=== PATIENT | male | born 1975 | race Caucasian/White ===

== ENCOUNTER 2020-07-03 14:18 | Outpatient (REF) | payer OTHER, SELFPAY ==
[2020-07-03 15:09] LABS: Alanine Aminotransferase 77 U/L (0-40); Albumin Level 4.4 g/dL (3.5-5.0); Alkaline Phosphatase 111 U/L (39-117); Aspartate Amino Transferase 92 U/L (5-37); Bilirubin Direct 0.3 mg/dL (0.0-0.5); Bilirubin Total 0.7 mg/dL (0.0-1.0); Total Protein 7.6 g/dL (6.5-8.0)
[2020-07-05 14:57] LABS: Ceruloplasmin 34 mg/dL (18-36); Immunoglobulin G 1340 mg/dL (600-1640)
[2020-07-06 15:52] LABS: Hepatitis B Viral DNA Qn - cp <1.00 NOT DETECTED Log IU/mL (NOT DETECTED); Hepatitis B Viral DNA Qn-IU/mL <10 NOT DETECTED IU/mL (NOT DETECTED)
[2020-07-08 23:12] LABS: Smooth Muscle Antibody <20 U (<20)
[2020-07-09 09:32] LABS: Liver Kidney Microsomal Ab <=20.0 U (<=20.0)
== END 2020-07-03 14:19 | disposition home or self-care (01) ==
LOC: HO.LAB 14:18
PROVIDERS: PCP Internal Medicine; Visit Provider Internal Medicine Gastroenterology
DX: R79.89 Other specified abnormal findings of blood chemistry (principal); Z86.19 Personal history of other infectious and parasitic diseases
CPT/HCPCS: 36415; 80076; 82390; 82784; 86255; 86376; 87517

== ENCOUNTER → 2020-07-10 15:57 | Outpatient (BNVA) | payer OTHER, SELFPAY | PROVIDERS: PCP Internal Medicine; Referring Provider Internal Medicine; Visit Provider Internal Medicine Gastroenterology | DX: Z76.89 Persons encountering health services in other specified circumstances (principal) ==

== ENCOUNTER 2020-07-22 20:30 | Emergency (ER) | payer OTHER, SELFPAY ==
[2020-07-22 22:57] VITALS: BP 115/57; PULSE 72; RESP 16; TEMP 37.1; O2SAT 98; BMI 27.9
--- NOTE | 2020-07-22 23:23 | ED_ITS ---
HPI - Skin/Abscess/Foreign Bdy General Chief complaint: Skin/Abscess/Foreign Body Stated complaint: ABSCESS Source: patient Mode of arrival: ambulatory Limitations: no limitations History of Present Illness HPI narrative: Patient presents to ED for right due to hoda posterior abscess due to injecting himself with testosterone. Patient states himself drained 6 mL of pus Related Data Home Medications Medication Instructions Recorded Confirmed gabapentin 300 mg capsule mg PO 07/10/20 07/10/20 amlodipine 5 mg tablet 5 mg PO DAILY 07/17/20 gabapentin 600 mg tablet 600 mg PO TID 07/17/20 Previous Rx's Medication Instructions Recorded atenolol 50 mg tablet 50 mg PO DAILY #90 tab 05/14/20 clonidine HCl 0.1 mg tablet 0.1 mg PO TID #90 tab 06/10/20 albuterol sulfate 90 mcg/actuation 2 puff INHALATION Q6H PRN 10 Days 07/17/20 aerosol inhaler #6.7 g azithromycin 250 mg tablet 250 mg PO DAILY 5 Days #6 tab 07/17/20 cyclobenzaprine 10 mg tablet 10 mg PO BEDTIME 30 Days #30 tab 07/17/20 ibuprofen 800 mg tablet 800 mg PO Q8H 10 Days #30 tab 07/17/20 triamcinolone acetonide 0.5 % 1 appl TOPICAL DAILY 10 Days #15 g 07/17/20 topical cream cephalexin 500 mg PO QID #28 cap 07/23/20 doxycycline hyclate 100 mg PO BID #20 cap 07/23/20 naproxen 500 mg PO BID PRN #20 tab 07/23/20 Allergies Allergy/AdvReac Type Severity Reaction Status Date / Time SEASONAL ALLERGIES Allergy Severe itch Uncoded 03/27/20 15:04 eyes,sneezing Review of Systems Review of Systems: Yes all other systems are reviewed and are negative Constitutional: Constitutional: Reports as per HPI and Reports no additional constitutional complaints Eyes: Eyes: Reports as per HPI and Reports no additional eye complaints ENT: Reports system reviewed and no additional complaints, except as documented and Reports as per HPI Cardiovascular: Cardiovascular: Reports as per HPI and Reports no additional cardiovascular complaints Respiratory: Respiratory: Reports as per HPI and Reports no additional respiratory complaints Gastrointestinal: Gastrointestinal: Reports as per HPI and Reports no additional gastrointestinal complaints Genitourinary: Genitourinary: Reports no additional male genitourinary complaints and Reports as per HPI Musculoskeletal: Musculoskeletal: Reports no additional musculoskeletal complaints and Reports as per HPI Comments: Right gluteal abscess Neurologic: Reports system reviewed and no additional complaints, except as documented and Reports as per HPI Psychiatric: Psychiatric: Reports no additional psychiatric complaints and Reports as per HPI [facility] Past Medical History Medical History (Updated 07/23/20 @ 00:58 by JARROD Seth) COVID-19 ruled out Elevated LFTs Flu-like symptoms Hip pain History of hepatitis C virus infection Surgical History No pertinent past surgical history Family History Family History (Updated 05/26/20 @ 07:59 by Martha Otrega Annette) Father Diabetes Alcohol abuse Hypertension Mother Depression with anxiety Family/Other Alcohol abuse FH: mental illness Social History Social History (Updated 07/10/20 @ 15:59 by Joelle Galindo CMA) Alcohol intake: never Smoking Status: Never smoker Smoked in Last 30 Days: Yes Use of substances other than those prescribed or required for medical reasons: No Advance Directives: No Physical Exam Vital Signs: Vital Signs: Last Vital Signs Temp 98.7 F 07/22/20 22:57 Pulse 72 07/22/20 22:57 Resp 16 07/22/20 22:57 BP 115/57 L 07/22/20 22:57 Pulse Ox 98 07/22/20 22:57 Body Mass Index 27.9 Const: General: cooperative, healthy appearing, comfortable, no acute distress, well developed, alert and awake; No Physically active Orientation/consciousness: patient oriented x3 HENMT: Head: Yes normal to inspection and Yes No palpable skull fracture present Eyes: General: appearance normal, both eyes and all related structures Neck: Neck: Yes normal visual inspection, Yes full ROM, Yes no lymphadenopathy, Yes no meningeal signs, Yes trachea midline, Yes supple and No tender Chest: Chest palpation & inspection: normal inspection of the chest and normal palpation of entire chest wall Resp: Effort & Inspection: normal respiratory effort and able to speak in complete sentences Auscultation: clear to auscultation bilaterally Cardio: Jugular venous distension: no JVD Heart sounds: S1 normal heart sound present and S2 normal heart sound present GI: Inspection: Yes normal to inspection and No abdominal wall ecchymosis Palpation (GI): Soft to palpation, not firm, nontender, no guarding and not rigid : General: No CVA tenderness and Yes no CVA tenderness Back/Spine/Pelvis: Other: Positive for large right gluteus hoda posterior thigh absent that is red erythematous and fluctuant. Negative for any abscess over hip joint. Back: no CVA tenderness, No CVA tenderness and No back tenderness Skin: Other: Right gluteus hoda abscess Neuro: General: patient oriented x3, gait normal, no meningeal signs and CN's II-XI intact bilaterally Cranial nerves: Yes CN's II-XII intact bilaterally Extrem: General: Yes normal to inspection and Yes full ROM Psych: Appearance: grossly normal, well kempt and not disheveled Course Course Course Narrative: Access evaluate by Dr. Hadley who states abscess is not overlying hip joint and can be drained. Patient states up-to-date with his tetanus. Reevaluation(s) Reevaluation #1: Abscess was drained. Abscess as at least 6 cm. Before incision and drainage wound was cleaned with sterile saline and Betadine. 10 mL of lidocaine 2% was used for anesthesia. Initially 18 gauge needle with syringe drain 60 mL of pus. Then incision was made and at least a 600 mL was drained. Forceps was used to open pocket. Normal saline was inserted into pocket of abscess or squeezing. Packing was placed. Patient informed to follow-up with surgeon. Patient discharged with antibiotics. Time: 00:55 Discharge Plan Discharge Clinical Impression: Abscess, Abscess of skin or subcutaneous tissue Patient Disposition: Home, Self-Care Instructions: Abscess (ED), Abscess Incision and Drainage (DC) Additional Instructions: Return to the ED immediately for worsening pain, redness, swelling, or any other concerning symptoms. Please follow-up with surgeon as outpatient. Return to the ED within 2 days for packing replacement. Prescriptions: New doxycycline hyclate 100 mg capsule 100 mg PO BID Qty: 20 RF: 0 cephalexin 500 mg capsule 500 mg PO QID Qty: 28 RF: 0 naproxen 500 mg tablet 500 mg PO BID PRN (Reason: pain) Qty: 20 RF: 0 No Action atenolol 50 mg tablet 50 mg PO DAILY Qty: 90 RF: 8 clonidine HCl 0.1 mg tablet 0.1 mg PO TID Qty: 90 RF: 8 ibuprofen 800 mg tablet 800 mg PO Q8H 10 Days Qty: 30 RF: 0 cyclobenzaprine 10 mg tablet 10 mg PO BEDTIME 30 Days Qty: 30 RF: 0 azithromycin 250 mg tablet 250 mg PO DAILY 5 Days Qty: 6 RF: 0 triamcinolone acetonide 0.5 % cream 1 appl topical DAILY 10 Days Qty: 15 RF: 0 albuterol sulfate 90 mcg/actuation HFA aerosol inhaler 2 puff inhalation Q6H PRN (Reason: shortness of breath or wheezing) 10 Days Qty: 6.7 RF: 0 gabapentin 300 mg capsule PO RF: 0 Referrals: Meliton Álvarez MD [Physician] - 2 days (Status post incision and drainage of right gluteus hoda abscess due to testosterone injections.) Interventions: ED Discharge Assessment Last Done: 07/23/20 01:11 Discharge Date/Time: 07/23/20 01:16 Print Language: Telugu
[2020-07-22] MEDS: Lidocaine HCl 2 % MPF 5 ML VIAL INFILTRATI ×2 (23:54)
[2020-07-23] MEDS: Ibuprofen 600 MG TABLET PO (01:09)
== END 2020-07-23 01:16 | disposition home or self-care (01) ==
PROVIDERS: Emergency Provider Emergency Medicine; PCP Internal Medicine
DX: L02.419 Cutaneous abscess of limb, unspecified (principal)
CPT/HCPCS: 10060; 87071; 87077; 87186; 87205; 99283; 99284

== ENCOUNTER 2020-10-23 14:08 | Outpatient (REF) | payer OTHER, SELFPAY | END 2020-10-23 14:09 | disposition home or self-care (01) | LOC: HO.LAB 14:08 | PROVIDERS: PCP Internal Medicine; Visit Provider Internal Medicine Gastroenterology | DX: Z13.89 Encounter for screening for other disorder (principal) ==

== ENCOUNTER 2020-12-22 21:24 | Emergency (ER) | payer OTHER, SELFPAY ==
--- NOTE | ~2020-12-22 | XR_ITS ---
EXAMINATION: XR HIP, RIGHT CLINICAL INFORMATION: Increasing pain. COMPARISON: None TECHNIQUE: Two views of the right hip. FINDINGS: There is normal symmetry of bilateral hip joint and SI joints on AP view. AP and frog-leg views right hip reveals a small nondisplaced fracture along the greater trochanter with small avulsion fracture fragments. There is no dislocation. No additional fractures seen.. XR/XR hip RT min 2V IMPRESSION: Small avulsion fracture fragments along the right greater trochanter of the femur. No additional fractures seen. There is no dislocation.
[2020-12-22 22:12] VITALS: BP 194/100; PULSE 95; RESP 18; TEMP 36.8; O2SAT 95; BMI 25.8
--- NOTE | 2020-12-22 23:29 | PC.NURSE ---
DR CONNER IN TO [facility] PATIENT. XRAYS REVIEWED.
--- NOTE | 2020-12-22 23:32 | ED.LOWEXIN ---
HPI - Extremity Injury (Lower) General Chief Complaint: Extremity Injury, Lower Stated Complaint: hip pain Time Seen by Provider: 12/22/20 23:32 History of Present Illness HPI Narrative: Patient is a 45-year-old male history of using male testosterone. Patient injected to his right gluteal area in the past. It developed an abscess once. Patient had a drain in the past. Patient claims that he did it again. He did not notice any abscess at this time. Been having pain for months. The pain is worse with movement. Patient also works out. No fever no chills. No cough no congestion or upper respiratory symptoms. Pain has been fairly constant. Patient finally decided come to emergency department further evaluation. Patient is on methadone. No IV drug use currently. No fever no chills. No systemic complaints currently. Related Data Home Medications Medication Instructions Recorded Confirmed amlodipine 5 mg tablet 5 mg PO DAILY 07/17/20 08/11/20 gabapentin 600 mg tablet 600 mg PO TID 07/17/20 08/11/20 Previous Rx's Medication Instructions Recorded atenolol 50 mg tablet 50 mg PO DAILY #90 tab 05/14/20 clonidine HCl 0.1 mg tablet 0.1 mg PO TID #90 tab 06/10/20 albuterol sulfate 90 mcg/actuation 2 puff INHALATION Q6H PRN 10 Days 07/17/20 aerosol inhaler #6.7 g azithromycin 250 mg tablet 250 mg PO DAILY 5 Days #6 tab 07/17/20 cyclobenzaprine 10 mg tablet 10 mg PO BEDTIME 30 Days #30 tab 07/17/20 triamcinolone acetonide 0.5 % 1 appl TOPICAL DAILY 10 Days #15 g 07/17/20 topical cream cephalexin 500 mg PO QID #28 cap 07/23/20 doxycycline hyclate 100 mg PO BID #20 cap 07/23/20 naproxen 500 mg PO BID PRN #20 tab 07/23/20 ibuprofen 800 mg tablet 800 mg PO Q8H 10 Days #90 tab 08/27/20 gabapentin 300 mg capsule 300 mg PO DAILY #90 cap 10/27/20 Allergies Allergy/AdvReac Type Severity Reaction Status Date / Time sulfamethoxazole Allergy Rash Verified 12/22/20 22:22 [From Bactrim] trimethoprim [From Bactrim] Allergy Rash Verified 12/22/20 22:22 SEASONAL ALLERGIES Allergy Severe itch Uncoded 12/22/20 22:21 eyes,sneezing Review of Systems Review of Systems: Constitutional: No Weight loss, No Fever, No Chills, No Night Sweats, No Fatigue, No Malaise ENT/Mouth: No Hearing loss, No Ear Pain, No Nasal Congestion, No Sinus Pain, No Hoarseness, No sore throat, No Rhinorrhea, No Swallowing Difficulty Eyes: No Eye Pain, No Swelling, No Redness, No Foreign Body, No Discharge, No Vision Changes Cardiovascular: No Chest Pain, No SOB, No Dyspnea on Exertion, No Orthopnea, No Edema, No Palpitations Respiratory: No Cough, No Sputum, No Wheezing, No Smoke Exposure, No Dyspnea Gastrointestinal: No Nausea, No Vomiting, No Diarrhea, No Constipation, No abdominal Pain, No Hematochezia, No Melena Genitourinary: no irregular bleeding, No Dysuria, No Urinary Frequency, No Hematuria, No Urinary Incontinence, No Urgency, No Flank Pain, No Urinary Flow Changes, No Hesitancy Musculoskeletal: Positive hip pain, No Myalgias, No Joint Swelling Skin: No Skin Lesions, No rash Neuro: No Weakness, No Numbness, No Paresthesias, No Loss of Consciousness, No Dizziness, No Headache Psych: No Anxiety/Panic, No Depression, No SI/HI/AH/VH, No Social Issues, Heme/Lymph: No Bruising, No Bleeding,No Lymphadenopathy Endocrine: No Polyuria, No Polydipsia, No Temperature Intolerance Yes all other systems are reviewed and are negative PMFSH Past Medical History Medical History COVID-19 ruled out Elevated LFTs Flu-like symptoms Hip pain History of hepatitis C virus infection Surgical History No pertinent past surgical history Family History Family History Father Diabetes Alcohol abuse Hypertension Mother Depression with anxiety Family/Other Alcohol abuse FH: mental illness Social History Social History Alcohol intake: never Advance Directives: No Advance Directives Information Provided: No Physical Exam Vital Signs: Vital Signs: Last Vital Signs Temp 98.2 F 12/22/20 22:12 Pulse 95 12/22/20 22:12 Resp 18 12/22/20 22:12 BP 194/100 H 12/22/20 22:12 Pulse Ox 95 12/22/20 22:12 Body Mass Index 25.8 Appearance: Alert. Oriented X3. No acute distress. Eyes: Pupils equal, round and reactive to light. ENT: Pharynx normal. Neck: Normal inspection. Neck supple. No lymph nodes noted. No crepitus CVS: Normal heart rate and rhythm. Pulses normal. Normal S1 and S2 Respiratory: No respiratory distress. Breath sounds normal. No Wheezing. No rales Abdomen: Soft and nontender. No rigidity. No distention. good BS x4 Skin: Skin warm and dry. Normal skin color. Normal skin turgor. Extremities: No lower extremity edema. There is no erythema in the right hip. There is no abscess that is palpable. Patient's range of motion is intact. Positive pain on movement. Distal pulses are intact. Skin are intact. No swelling. Calf size equal at 10 cm below the tibial tuberosity. Neurovascular intact to all extremities. No Lacerations. No Rash Neuro: Oriented X 3. No motor deficit. No sensory deficit. Moving all extermities. No slurred speech MDM - Extremity Injury (Lower) MDM Narrative Medical decision making narrative: Patient well-appearing positive history of using IM testosterone. Patient x-ray showed an avulsion fracture of the greater trochanter. Will need follow-up on an outpatient basis. Patient ambulatory but with pain. Range of motion intact but with pain. There is no fever no chills. No systemic complaints. Given the range of motion less likely a septic joint. Patient denies using IV drugs recently. Has been on methadone for years. Currently in stable condition. Will refer patient to orthopedic clinic tomorrow. Discharge Plan Discharge Clinical Impression: Closed avulsion fracture of greater trochanter of femur Patient Disposition: Home, Self-Care Instructions: Avulsion Fracture (ED) Prescriptions: No Action atenolol 50 mg tablet 50 mg PO DAILY Qty: 90 RF: 8 clonidine HCl 0.1 mg tablet 0.1 mg PO TID Qty: 90 RF: 8 ibuprofen 800 mg tablet 800 mg PO Q8H 10 Days Qty: 90 RF: 8 gabapentin 300 mg capsule 300 mg PO DAILY Qty: 90 RF: 8 doxycycline hyclate 100 mg capsule 100 mg PO BID Qty: 20 RF: 0 cephalexin 500 mg capsule 500 mg PO QID Qty: 28 RF: 0 naproxen 500 mg tablet 500 mg PO BID PRN (Reason: pain) Qty: 20 RF: 0 amlodipine 5 mg tablet 5 mg PO DAILY RF: 0 gabapentin 600 mg tablet 600 mg PO TID RF: 0 cyclobenzaprine 10 mg tablet 10 mg PO BEDTIME 30 Days Qty: 30 RF: 0 azithromycin 250 mg tablet 250 mg PO DAILY 5 Days Qty: 6 RF: 0 triamcinolone acetonide 0.5 % cream 1 appl topical DAILY 10 Days Qty: 15 RF: 0 albuterol sulfate 90 mcg/actuation HFA aerosol inhaler 2 puff inhalation Q6H PRN (Reason: shortness of breath or wheezing) 10 Days Qty: 6.7 RF: 0 Referrals: Erlin Ragland MD [Physician] - 1 day
== END 2020-12-23 00:06 | disposition home or self-care (01) ==
PROVIDERS: Emergency Provider Emergency Medicine Emergency Medical Services; PCP Internal Medicine
DX: S72.111A Displaced fracture of greater trochanter of right femur, initial encounter for closed fracture (principal); F11.90 Opioid use, unspecified, uncomplicated; X58.XXXA Exposure to other specified factors, initial encounter; Y93.9 Activity, unspecified; Y92.9 Unspecified place or not applicable; Y99.9 Unspecified external cause status
CPT/HCPCS: 73502; 99283

== ENCOUNTER → 2020-12-29 08:43 | Outpatient (BNVA) | payer OTHER, SELFPAY | PROVIDERS: PCP Internal Medicine; Visit Provider Physician Assistant | DX: S72.111A Displaced fracture of greater trochanter of right femur, initial encounter for closed fracture (principal) | CPT/HCPCS: 99202 ==

== ENCOUNTER 2021-01-01 08:05 | Outpatient (REF) | payer OTHER, SELFPAY ==
--- NOTE | ~2021-01-01 | MR_ITS ---
EXAMINATION: MR HIP WITHOUT CONTRAST, RIGHT CLINICAL INFORMATION: Right hip greater trochanter fracture COMPARISON: Radiographs 12/22/2020 TECHNIQUE: MRI of the right hip was obtained using routine sequences on a high-field strength magnet. FINDINGS: Best demonstrated on the coronal T1-weighted sequence of the pelvis on image 12 is a 2 cm round focus of T2 signal hyperintensity representing lucency on the radiograph with a few displaced cortical fragments at the proximal most aspect of the greater trochanter. This is located proximal to and between the insertions of the gluteus minimus and medius tendons. There is marked surrounding bone marrow edema and soft tissue edema with a fluid collection in the trochanteric bursa. Edema extends proximally along the gluteus medius and minimus muscles, along the obturator externus tendon and muscle, and distally along the vastus lateralis muscle with fluid tracking within the fascial planes between the quadriceps and tensor fascia tiffany muscles. There is a trace hip joint effusion. No definite labral tear. Mild reactive adenopathy in the deep right pelvis. MR/MR hip RT wo con IMPRESSION: There is a 2 cm round lucency at the proximal most aspect of the right greater trochanter with disruption of the proximal cortex with minimally displaced cortical fragments which were demonstrated on the radiograph. Given the intense surrounding bone marrow edema and surrounding soft tissue edema with small focal fluid collection proximally, and fluid in the trochanteric bursa, abscess/osteomyelitis is considered the most likely diagnosis, although uncommon in this location. This critical result was discussed with Charmaine GARAY at 09:57 am on 01/01/2021 and it was ascertained that the content and urgency of the report was understood at the time of direct communication.
== END 2021-01-01 08:06 | disposition home or self-care (01) ==
LOC: HO.MRI 08:05
PROVIDERS: PCP Internal Medicine; Visit Provider Physician Assistant
DX: S72.111A Displaced fracture of greater trochanter of right femur, initial encounter for closed fracture (principal)
CPT/HCPCS: 73721

== ENCOUNTER → 2021-01-05 14:08 | Outpatient (BNVA) | payer OTHER, SELFPAY | PROVIDERS: Visit Provider Physician Assistant | DX: Z01.818 Encounter for other preprocedural examination (principal); L02.415 Cutaneous abscess of right lower limb | CPT/HCPCS: 99212 ==

== ENCOUNTER 2021-01-07 07:08 | Day surgery (SDC) | payer OTHER, SELFPAY ==
--- NOTE | 2021-01-06 12:05 | HO.ANESPROP2 ---
Documented by User: Connie Evans 01/06/21 12:08 HPI - Anesthesia Eval Consult details Narrative: 45yo M for I&D Right Hip Per old record, h/o IVDA/non-prescribed methadone PMFSH Active Problems Active Problems: All Active Problems (Updated 01/05/21 @ 15:17 by Charmaine Griffiths PA-C) Abscess of hip, right (Acute) Closed avulsion fracture of greater trochanter of right femur (Acute) COVID-19 ruled out (Acute) Hip pain (Acute) Flu-like symptoms (Acute) Obsessive compulsive personality disorder (Acute) GERD (gastroesophageal reflux disease) (Acute) Attention deficit hyperactivity disorder (Acute) Depression (Acute) Hypertension (Acute) Elevated LFTs (Acute) Past Medical History Medical History (Updated 01/06/21 @ 12:06 by Connie Evans) COVID-19 ruled out Depression Elevated LFTs GERD (gastroesophageal reflux disease) Hip pain History of hepatitis C virus infection Hypertension Family History Family History Father Diabetes Alcohol abuse Hypertension Mother Depression with anxiety Family/Other Alcohol abuse FH: mental illness Surgical History Surgical History No pertinent past surgical history Social History Social History (Updated 12/29/20 @ 08:54 by Cait Voss CMA) Alcohol intake: never Patient Tobacco Use Status: Current everyday Tobacco user Tobacco use type: Smokeless Tobacco Are you DNR?: No Advance Directives: No Advance Directives Information Provided: Yes Current occupational status: unemployed Current occupation: Right handed Meds Allergies Allergy/AdvReac Type Severity Reaction Status Date / Time sulfamethoxazole Allergy Rash Verified 01/05/21 14:22 [From Bactrim] trimethoprim [From Bactrim] Allergy Rash Verified 01/05/21 14:22 SEASONAL ALLERGIES Allergy Severe itch Uncoded 12/22/20 22:21 eyes,sneezing Home Medications Medication Instructions Recorded Confirmed Last Taken Type amlodipine 5 mg tablet 5 mg PO DAILY 07/17/20 08/11/20 Unknown History gabapentin 600 mg tablet 600 mg PO TID 07/17/20 08/11/20 Unknown History methadone 120 mg PO DAILY 01/07/21 01/07/21 01/07/21 History Exam Exam Date and Time: January 06, 2021 1205 Assessment and Plan Assessment Anesthesia Assessment: Chart Reviewed Documented by User: Danyelle Roche 01/07/21 07:51 [facility] Past Medical History Medical History (Updated 01/06/21 @ 12:06 by Connie Evans) COVID-19 ruled out Depression Elevated LFTs GERD (gastroesophageal reflux disease) Hip pain History of hepatitis C virus infection Hypertension Family History Family History Father Diabetes Alcohol abuse Hypertension Mother Depression with anxiety Family/Other Alcohol abuse FH: mental illness Surgical History Surgical History No pertinent past surgical history Social History Social History (Updated 12/29/20 @ 08:54 by Cait Voss CMA) Alcohol intake: never Patient Tobacco Use Status: Current everyday Tobacco user Tobacco use type: Smokeless Tobacco Are you DNR?: No Advance Directives: No Advance Directives Information Provided: Yes Current occupational status: unemployed Current occupation: Right handed Meds Allergies Allergy/AdvReac Type Severity Reaction Status Date / Time sulfamethoxazole Allergy Rash Verified 01/05/21 14:22 [From Bactrim] trimethoprim [From Bactrim] Allergy Rash Verified 01/05/21 14:22 SEASONAL ALLERGIES Allergy Severe itch Uncoded 12/22/20 22:21 eyes,sneezing Home Medications Medication Instructions Recorded Confirmed Last Taken Type amlodipine 5 mg tablet 5 mg PO DAILY 07/17/20 08/11/20 Unknown History gabapentin 600 mg tablet 600 mg PO TID 07/17/20 08/11/20 Unknown History methadone 120 mg PO DAILY 01/07/21 01/07/21 01/07/21 History Exam Airway Mallampati Class: II (Poor dentition, nothing loose) TM Dist: >3cm Neck ROM: Full Heart: rrr Lungs: cta Assessment and Plan Assessment Anesthesia Assessment: Anesthesia Plan Discussed and Chart Reviewed Final Anesthetic Review NPO: Yes ASA Class: III Final Preanesthetic Review: No Changes in Pt Med Stat and Consent Obtained/Reviewed Patient Risk: Intermediate Procedure Risk: Intermediate Anesthetic Plan Anesthetic Plan: GA Disposition: Standard PACU
[2021-01-07 07:30] VITALS: BP 161/91; PULSE 71; RESP 18; TEMP 36.4; O2SAT 98; BMI 24.3
--- NOTE | 2021-01-07 07:42 | ECG_ITS ---
Test Reason : EKG Blood Pressure : / mmHG Vent. Rate : 068 BPM Atrial Rate : 068 BPM P-R Int : 144 ms QRS Dur : 086 ms QT Int : 436 ms P-R-T Axes : 000 066 -04 degrees QTc Int : 463 ms Unusual P axis, possible ectopic atrial rhythm Voltage criteria for left ventricular hypertrophy Nonspecific ST and T wave abnormality Prolonged QT Abnormal ECG When compared with ECG of 17-SEP-2015 13:59, Unusual P axis, possible ectopic atrial rhythm has replaced Normal sinus rhythm Referred By: Gabino Tyler Electronically Signed By:MATT BURR MD
[2021-01-07] MEDS: Lactated Ringers 1,000 ML 100 ML IVCONT (07:51)
--- NOTE | 2021-01-07 08:23 | P.CONAN_ITS ---
FORMERLY [facility] Active Problems Active Problems: All Active Problems (Updated 01/06/21 @ 12:06 by Connie corral) Abscess of hip, right (Acute) Closed avulsion fracture of greater trochanter of right femur (Acute) COVID-19 ruled out (Acute) Hip pain (Acute) Flu-like symptoms (Acute) Obsessive compulsive personality disorder (Acute) Attention deficit hyperactivity disorder (Acute) Elevated LFTs (Acute) Past Medical History Medical History COVID-19 ruled out Depression Elevated LFTs GERD (gastroesophageal reflux disease) Hip pain History of hepatitis C virus infection Hypertension Family History Family History Father Diabetes Alcohol abuse Hypertension Mother Depression with anxiety Family/Other Alcohol abuse FH: mental illness Surgical History Surgical History No pertinent past surgical history Social History Social History Alcohol intake: never Patient Tobacco Use Status: Current everyday Tobacco user Tobacco use type: Smokeless Tobacco Are you DNR?: No Advance Directives: No Advance Directives Information Provided: Yes Current occupational status: unemployed Current occupation: Right handed Meds Allergies Allergy/AdvReac Type Severity Reaction Status Date / Time sulfamethoxazole Allergy Rash Verified 01/05/21 14:22 [From Bactrim] trimethoprim [From Bactrim] Allergy Rash Verified 01/05/21 14:22 SEASONAL ALLERGIES Allergy Severe itch Uncoded 12/22/20 22:21 eyes,sneezing Active Medications: Current Medications Generic Name Dose Route Start Last Admin Trade Name Freq PRN Reason Stop Dose Admin Fentanyl 50 mcg 01/07/21 07:54 Fentanyl Citrate/Pf 100 Mcg/2 Ml Vial IVPUSH Q5M PRN Pain, Severe (Pain Scale 7-10) Lactated Ringer's 1,000 mls @ 100 mls/hr 01/07/21 07:15 01/07/21 07:51 Lr IVCONT 100 mls/hr .Q10H ROSENDA Administration Promethazine HCl 12.5 mg/ 50.5 mls @ 202 mls/hr 01/07/21 07:54 Sodium Chloride IV ONCE PRN Nausea and Vomiting Oxycodone HCl 10 mg 01/07/21 07:54 Oxycodone Hcl Immed Release 5 Mg Tablet PO ONCE PRN Pain, Severe (Pain Scale 7-10) Home Medications Medication Instructions Recorded Confirmed Last Taken Type amlodipine 5 mg tablet 5 mg PO DAILY 07/17/20 08/11/20 Unknown History gabapentin 600 mg tablet 600 mg PO TID 07/17/20 08/11/20 Unknown History methadone 120 mg PO DAILY 01/07/21 01/07/21 01/07/21 History Exam Exam Date and Time: January 07, 2021 0823 Height,Weight and Vital Signs: Height 5 ft 10 in Weight 77.111 kg Last Vital Signs Temp 97.6 F 01/07/21 07:30 Pulse 71 01/07/21 07:30 Resp 18 01/07/21 07:30 BP 161/91 H 01/07/21 07:30 Pulse Ox 98 01/07/21 07:30 Airway Mallampati Class: II TM Dist: >3cm Neck ROM: Full Assessment and Plan Assessment Anesthesia Assessment: Anesthesia Plan Discussed and Chart Reviewed Final Anesthetic Review NPO: Yes ASA Class: II Final Preanesthetic Review: No Changes in Pt Med Stat, Meds/Allgs Chart Reviewed, Consent Obtained/Reviewed and Anes Risks/Benef Reviewed Patient Risk: Low Procedure Risk: Low Assessment/Block/Sedation in SS: Assess/Block/Sedation-SS Anesthetic Plan Anesthetic Plan: GA Disposition: Standard PACU
--- NOTE | 2021-01-07 08:40 | MHC.SHP ---
Pre-Procedural Eval Section A Date of Service: 01/07/21 The patient is an INPATIENT: No Changes since office visit: Yes Patient answered all questions; No Cold of Flu in the past 2 weeks, No New Medical Problems and No Changes in Medication The History & Physical has been completed within 30 days and I have reviewed it.: Yes Section B Chief Complaint: Cutaneous Abscess Allergies: Allergies Allergy/AdvReac Type Severity Reaction Status Date / Time sulfamethoxazole Allergy Rash Verified 01/05/21 14:22 [From Bactrim] trimethoprim [From Bactrim] Allergy Rash Verified 01/05/21 14:22 SEASONAL ALLERGIES Allergy Severe itch Uncoded 12/22/20 22:21 eyes,sneezing Plan I have reviewed the history and physical and performed a pertinent physical examination on my patient. No changes have occurred unless specified.
--- NOTE | 2021-01-07 09:26 | PM.OP ---
Brief Operative Note Date of Service: 01/07/21 Pre-op diagnosis: right hip abcess Post-op diagnosis: other (right hip abductor tendonitis) Procedure: irrigation and debridement left hip Surgeon: Erlin Ragland MD Anesthesia: GETA and local Was an Vice President Planning used for this Procedure?: Yes Vice President Planning: Charmaine Griffiths Estimated blood loss (mL): 10 IV fluids (mL): 600 Pathology: other (culture and path) Condition: stable Disposition: PACU
[2021-01-07 09:41] VITALS: BP 143/66; PULSE 76; RESP 12; TEMP 36.1; O2SAT 98
[2021-01-07 09:46] VITALS: BP 152/76; PULSE 73; RESP 14; O2SAT 96
[2021-01-07 09:51] VITALS: BP 150/70; PULSE 72; RESP 16; O2SAT 96
[2021-01-07 09:56] VITALS: BP 150/77; PULSE 67; RESP 16; TEMP 36.1; O2SAT 96
--- NOTE | 2021-01-21 11:32 | P.OP_ITS ---
Operative Note Operative Note Date of Service: 01/07/21 Narrative: Pre-op diagnosis: right hip abcess Post-op diagnosis: other (right hip abductor tendonitis) Procedure: irrigation and debridement left hip Surgeon: Erlin Ragland MD Anesthesia: GETA and local Was an Agricultural Research Technician used for this Procedure?: Yes Agricultural Research Technician: Charmaine Griffiths Estimated blood loss (mL): 10 IV fluids (mL): 600 Pathology: other (culture and path) Condition: stable Disposition: PACU Patient was brought to the operating room and placed the the left lateral decubitus position. He was prepped and draped in standard sterile fashion and a time out was called to indentify proper site, proper procedure and IV antibio tics per weight were administered. I began by making a lateral incision over the greater trochanter. Blunt dissection was taken down to the tensor fascia which was incised in line with the incision and then proximally the fibers of the gluteus hoda and medius were split. At no point did I appreciate any purulence or fluid collection. The tissues appeared viable and normal. Once I accessed the medial aspect of the greater trochanter on the undersurface of the medius tendon there was fibrinous tissue. There was no evidence of infection but there did appear to be some chronic inflammatory process occurring. There was no brinda fracture of the greater trochanter. This process did appear to track up into the more proximal fibers of the hip external rotators and abductors. I used a curved curette to curette the greater trochanter down to bleeding bone just lateral to the piriformis fossa. I also used to curette to remove the fibrinous material and multiple cultures were obtained. IV antibiotics were then administered and I irrigated copiously with approximately 6 L of warm saline. Once this was done I closed the tensor fascia and then the incision with absorbable suture and skin glue and Steri-Strips. Patient was placed in a sterile dressing extubated brought to recovery room in stable condition. Approximately 20 mL of 0.25% Marcaine with epinephrine was injected about the incision. There were no known complications. Patient will continue to weight bear as tolerated and we will await cultures.
== END 2021-01-07 10:31 | disposition home or self-care (01) ==
PROVIDERS: PCP Internal Medicine; Visit Provider Orthopaedic Surgery
PROC: (CPT 11044; principal; 2021-01-07 08:40)
DX: L02.415 Cutaneous abscess of right lower limb (principal); M76.891 Other specified enthesopathies of right lower limb, excluding foot
CPT/HCPCS: 11044; 87071; 87077; 87186; 87205; 88304; 93005; J0690; J1100; J1885; J2250; J2405; J3010

== ENCOUNTER → 2021-01-16 09:45 | Outpatient (BNVA) | payer OTHER, SELFPAY | PROVIDERS: PCP Internal Medicine; Visit Provider Physician Assistant | DX: S70.01XD Contusion of right hip, subsequent encounter (principal) | CPT/HCPCS: 99212 ==

== ENCOUNTER → 2021-01-20 11:06 | Outpatient (BNVA) | payer OTHER, SELFPAY | PROVIDERS: Visit Provider Physician Assistant | DX: Z48.01 Encounter for change or removal of surgical wound dressing (principal); T81.31XA Disruption of external operation (surgical) wound, not elsewhere classified, initial encounter | CPT/HCPCS: 99212 ==

== ENCOUNTER 2021-01-21 08:21 | Day surgery (SDC) | payer OTHER, SELFPAY ==
[2021-01-21] VITALS (10 sets, daily range): BP systolic 116–177; BP diastolic 62–107; PULSE 64–98; RESP 8–16; TEMP 36.3–36.9; O2SAT 97–100; BMI 24.0
--- NOTE | 2021-01-21 08:50 | PC.NURSE ---
Patients BP elevated in preop, 177/107. States he has not taken his Clonidine PO in a about 2 days as he has misplaced the bottle. Dr. Amaya notified. No new orders at this time. Okay to proceed with surgery.
[2021-01-21] MEDS: Lactated Ringers 500 ML 20 ML IVCONT (09:00)
--- NOTE | 2021-01-21 09:07 | PC.NURSE ---
Patient arrived to pre op without a dressing on right hip surgical site. Patient stated that he was very busy this AM and did not have time to cover it . Dr. Ragland at bedside and observed site. Requested that site be covered. This nurse covered site with ABD followed by tape. Patient educated on importance of keeping site covered at all times.
--- NOTE | 2021-01-21 09:09 | MHC.SHP ---
Pre-Procedural Eval Section A Date of Service: 01/21/21 The patient is an INPATIENT: No Changes since office visit: Yes Patient answered all questions; No Cold of Flu in the past 2 weeks, No New Medical Problems and No Changes in Medication The History & Physical has been completed within 30 days and I have reviewed it.: Yes Section B Chief Complaint: Cutaneous Allergies: Allergies Allergy/AdvReac Type Severity Reaction Status Date / Time sulfamethoxazole Allergy Rash Verified 01/21/21 08:26 [From Bactrim] trimethoprim [From Bactrim] Allergy Rash Verified 01/21/21 08:26 SEASONAL ALLERGIES Allergy Severe itch Uncoded 12/22/20 22:21 eyes,sneezing Plan I have reviewed the history and physical and performed a pertinent physical examination on my patient. No changes have occurred unless specified.
--- NOTE | 2021-01-21 09:18 | PC.NURSE ---
OR nurse Chantell Dorsey notified that Cefazolin was ordered from Dr. Ragland. Chantell to have anesthesia grab med from [facility] and administer.
--- NOTE | 2021-01-21 10:37 | PM.OP ---
Brief Operative Note Date of Service: 01/21/21 Pre-op diagnosis: right hip abcess Post-op diagnosis: same Procedure: irrigation and debridement right hip Surgeon: Erlin Ragland MD Anesthesia: GETA and local Was an Education Program Associate used for this Procedure?: No Estimated blood loss (mL): 25 IV fluids (mL): 800 Pathology: none sent Condition: stable Disposition: PACU
--- NOTE | 2021-01-21 10:38 | W.PM.OPN ---
Operative Note Operative Note Date of Service: 01/21/21 Narrative: Pre-op diagnosis: right hip abcess Post-op diagnosis: same Procedure: irrigation and debridement right hip Surgeon: Erlin Ragland MD Anesthesia: GETA and local Was an General Administrator used for this Procedure?: No Estimated blood loss (mL): 25 IV fluids (mL): 800 Pathology: none sent Condition: stable Disposition: PACU Patient was brought to the operating room and placed in the left lateral decubitus position on the surgical table. He was prepped and draped in standard sterile fashion and a time out was called to identify proper site, proper procedure and IV antibiotics per weight were administered. The previous incision was partially opened and I opened this fully and removed all excess suture. There was no brinda purulence. There was a fibrinous this tissue and debris. A portion of the tensor fascia was involved and this was debrided with a combination of a curette and a rongeur. I was able to visualize healthy gluteus medius muscle belly and tendon. The tract of the prior I and D was explored and there was no obvious purulence. I debrided thoroughly all tissues involved with a currette and a rangeur and irrigated 6 L of warm saline both in the previous surgical tract as well as on the undersurface of the greater trochanter and the trochanteric bursa. Once i had aggressively debrided and removed all non visable tissue and irrigated I placed a Alvarado-Beltre drain adjacent to the gluteus medius and in the trochanteric bursa. I then closed the skin with a vertical mattress 2-0 nylon. The drain was brought out to the skin distal to the incision and protected while the sterile dressings were applied. I injected approximately 15 mL of 0.5% Marcaine in and around the incision. Patient was then extubated and brought to recovery room in stable condition there were no known complications. He does have a drain and will be seen in my office in 48 hours for drain removal and dressing removal. Until then he will keep dressing intact and change drain as needed..
== END 2021-01-21 12:38 | disposition home or self-care (01) ==
PROVIDERS: PCP Internal Medicine; Visit Provider Orthopaedic Surgery
PROC: (CPT 11043; principal; 2021-01-21 08:30)
DX: L02.415 Cutaneous abscess of right lower limb (principal); M25.551 Pain in right hip; I10 Essential (primary) hypertension; R79.89 Other specified abnormal findings of blood chemistry; F32.9 Major depressive disorder, single episode, unspecified; Z86.19 Personal history of other infectious and parasitic diseases; Z88.2 Allergy status to sulfonamides
CPT/HCPCS: 11043; J0131; J0690; J2250; J2405; J3010

== ENCOUNTER → 2021-01-28 09:11 | Outpatient (BNVA) | payer OTHER, SELFPAY | PROVIDERS: Visit Provider Physician Assistant | DX: S70.01XD Contusion of right hip, subsequent encounter (principal); L02.415 Cutaneous abscess of right lower limb | CPT/HCPCS: 99212 ==

== ENCOUNTER → 2021-02-02 09:58 | Outpatient (BNVA) | payer OTHER, SELFPAY | PROVIDERS: Visit Provider Orthopaedic Surgery | DX: L02.415 Cutaneous abscess of right lower limb (principal) | CPT/HCPCS: 99212 ==

== ENCOUNTER → 2021-02-12 08:41 | Outpatient (BNVA) | payer OTHER, SELFPAY | PROVIDERS: PCP Internal Medicine; Visit Provider Orthopaedic Surgery | DX: L02.415 Cutaneous abscess of right lower limb (principal) | CPT/HCPCS: 99212 ==

== ENCOUNTER → 2021-03-30 14:30 | Outpatient (BNVA) | payer OTHER, SELFPAY | PROVIDERS: Visit Provider Orthopaedic Surgery | DX: L02.415 Cutaneous abscess of right lower limb (principal); R53.83 Other fatigue; I10 Essential (primary) hypertension; F32.9 Major depressive disorder, single episode, unspecified; F14.20 Cocaine dependence, uncomplicated; Z87.891 Personal history of nicotine dependence; Z88.1 Allergy status to other antibiotic agents; Z88.2 Allergy status to sulfonamides; J30.2 Other seasonal allergic rhinitis | CPT/HCPCS: 99212 ==

== ENCOUNTER → 2021-05-04 11:25 | Outpatient (BNVA) | payer OTHER, SELFPAY | PROVIDERS: Visit Provider Orthopaedic Surgery | DX: L02.415 Cutaneous abscess of right lower limb (principal) | CPT/HCPCS: 99212 ==

== ENCOUNTER 2023-11-16 16:52 | Emergency (ER) | payer MEDICAID, SELFPAY ==
--- NOTE | 2023-11-16 | ECG_ITS ---
Test Reason : BRADYCARDIA Blood Pressure : / mmHG Vent. Rate : 043 BPM Atrial Rate : 043 BPM P-R Int : 156 ms QRS Dur : 110 ms QT Int : 478 ms P-R-T Axes : 070 044 026 degrees QTc Int : 403 ms Marked sinus bradycardia Minimal voltage criteria for LVH, may be normal variant ( Sokolow-Chacko ) Abnormal ECG When compared with ECG of 07-JAN-2021 07:51, Sinus rhythm has replaced Ectopic atrial rhythm Vent. rate has decreased BY 25 BPM Nonspecific T wave abnormality, improved in Inferior leads T wave inversion no longer evident in Lateral leads QT has shortened Referred By: Generic ED Physician Electronically Signed By:Jose Alejandro Simmons
[2023-11-16 17:14] VITALS: BP 115/64; PULSE 54; RESP 20; TEMP 37.2; O2SAT 98; BMI 21.5
[2023-11-16 17:21] VITALS: PULSE 56
--- NOTE | 2023-11-16 18:05 | ED.GENADULT ---
HPI - General Adult General Chief complaint: ETOH/Substance Use Stated complaint: seeking detox Time Seen by Provider: 11/16/23 21:10 Source: patient Mode of arrival: ambulatory History of Present Illness HPI narrative: 48-year-old male arrives after having been released from detox today and states that he has been on benzos/fentanyl/cocaine IV. Patient requesting detox. Patient gives a very long drawn out reason why he needs benzodiazepines prior to going to [facility]. He does describe muscle cramping, and reports he had Sublocade 2 days ago. Related Data Home Medications ?Medication ?Instructions ?Recorded ?Confirmed amlodipine 5 mg tablet 5 mg PO DAILY 07/17/20 08/11/20 methadone 120 mg PO DAILY 01/07/21 01/07/21 Previous Rx's ?Medication ?Instructions ?Recorded atenolol 50 mg tablet 50 mg PO DAILY #90 tabs 05/14/20 clonidine HCl 0.1 mg tablet 0.1 mg PO TID #90 tabs 06/10/20 albuterol sulfate 90 mcg/actuation 2 puff inhalation Q6H PRN 07/17/20 aerosol inhaler shortness of breath or wheezing 10 days #6.7 grams cyclobenzaprine 10 mg tablet 10 mg PO BEDTIME 30 days #30 tabs 07/17/20 triamcinolone acetonide 0.5 % 1 appl topical DAILY 10 days #15 07/17/20 topical cream grams naproxen 500 mg tablet 500 mg PO BID PRN pain #20 tabs 07/23/20 ibuprofen 800 mg tablet 800 mg PO Q8H 10 days #90 tabs 08/27/20 gabapentin 300 mg capsule 300 mg PO DAILY #90 caps 10/27/20 oxycodone-acetaminophen 5 mg-325 1 tab PO Q6H PRN pain (scale score 01/16/21 mg tablet (Percocet) 4-6) 6 days #13 tabs levofloxacin 500 mg tablet 500 mg PO DAILY #56 tabs 03/30/21 gabapentin 600 mg tablet 600 mg PO TID #90 tabs 04/02/21 Allergies Allergy/AdvReac Type Severity Reaction Status Date / Time sulfamethoxazole Allergy Rash Verified 11/16/23 17:21 [From Bactrim] trimethoprim [From Bactrim] Allergy Rash Verified 11/16/23 17:21 SEASONAL ALLERGIES Allergy Severe itch Uncoded 08/29/23 09:05 eyes,sneezing Review of Systems Review of Systems: Pertinent positives and negatives as stated in [facility]PI [facility] Past Medical History Source: nursing notes reviewed Medical History COVID-19 ruled out Hip pain GERD (gastroesophageal reflux disease) Depression Hypertension History of hepatitis C virus infection Elevated LFTs Surgical History No pertinent past surgical history Family History Family History Father Diabetes Alcohol abuse Hypertension Mother Depression with anxiety Family/Other Alcohol abuse FH: mental illness Social History Social History Alcohol intake: never Patient Tobacco Use Status: Former Tobacco user Quit Date: 07/11/2018 Tobacco use type: Cigarette Years Smoked: 8 Smoked in Last 30 Days: No Advance Directives: No Advance Directives Information Provided: No Do you have a plan to hurt others: No Plan Current occupational status: unemployed Current occupation: Right handed Physical Exam ED Vital Signs: Vital Signs - 24 hr 11/16/23 17:14 11/16/23 20:42 11/16/23 23:31 Temperature 98.9 F 97.9 F 0 F L Pulse Rate 54 45 L 0 L Respiratory Rate 20 16 0 L Blood Pressure 115/64 99/48 L 0/0 L Pulse Oximetry 98 97 0 L Oxygen Delivery Method Room Air Room Air BMI result Body Mass Index 21.5 VITAL SIGNS: Reviewed. GENERAL: Well developed, well nourished, in no acute distress. HEAD: Normocephalic/atraumatic EYES: PERRLA, EOMI EARS: Ext canals without abnormality NOSE: Nares patent bilateral OROPHARYNX: no oral lesions noted, posterior pharynx clear, no excessive sat elevation NECK: Supple, no adenopathy LUNGS: Normal breath sounds. No adventitious sounds or accessory muscle use. SpO2<98> CARDIOVASCULAR: Regular rate, no tachycardia, and rhythm without noted murmurs ABDOMEN: Soft, non-tender, non-distended with bowel sounds. NANCY: Deferred MUSCULOSKELETAL: No tenderness, deformities, or effusions noted on gross inspection. EXTREMITIES: No cyanosis, clubbing or edema. SKIN: Inspection of the skin reveals no rashes, no diaphoresis NEUROLOGIC: Alert and oriented x 4. Strength and sensation to light touch were grossly intact x 4. Course Course Course Narrative: This is a Rapid Medical Examination (RME) performed by Ivan Betancourt PA-C in triage. Full HPI, ROS, assessment and treatment plan per primary provider in the Main ED. 48-year-old male with past medical history significant for obsessive compulsive personality disorder, ADHD, polysubstance abuse presents to the ED today requesting medication prescription. He states that he just left detox today. Notes he was not fully honest with the detox center or his tax compliance officer about what he was taking upon entrance into the program. He states he was on benzos, IV fentanyl and IV cocaine. He is here today requesting a couple day script of Librium to help him get through until Tuesday when he [facility] back to [facility] for sober house placement. states he feels like he is withdrawing. in triage, diaphoretic, tremulous. stating he feels his skin crawling. Plan: basic labs, US, UDS, ethanol Medications Administered Discontinued Medications Generic Name Dose Route Start Last Admin Trade Name Freq PRN Reason Stop Dose Admin Sodium Chloride 1,000 mls @ 999 mls/hr 11/16/23 21:15 11/16/23 22:59 Ns IV 11/16/23 22:15 Infused .Q1H1M ROSENDA Infusion Calcium Gluconate 2 gm in 100 mls @ 400 mls/hr 11/16/23 21:12 11/16/23 22:07 Calcium Gluconate IV 11/16/23 21:26 Infused ONCE ONE Infusion Dextrose 250 mls @ 750 mls/hr 11/16/23 21:12 11/16/23 22:56 D10 IV Infused Q15M PRN Infusion per Hypoglycemia Standing Ord. Insulin Human Regular 5 unit 11/16/23 21:12 11/16/23 22:42 Insulin Regular, Human 100 Unit/Ml 3 Ml Vial IVPUSH 11/16/23 21:13 5 unit ONCE ONE Administration Medical Decision Making Medical Decision Making MDM Narrative: 48-year-old male with history and clinical presentation inconsistent with acute benzodiazepine withdrawal, there is no tachycardia or hypertension, patient is not diaphoretic or tremulous. I reviewed all investigations and hematologic indices do not demonstrate a leukocytosis but there is a new anemia no thrombocytopenia. Patient deferred rectal exam for stool guaiac. Chemistries indices significant for hyperkalemia and no DYLAN, otherwise LFTs are within normal limits and lipase is within normal limits. Urinalysis is negative for UTI or hematuria. UDS is negative for benzodiazepines but positive for buprenorphine and fentanyl and otherwise salicylate and ethanol are undetectable. EKG demonstrates peaked T-waves. INTERVENTION: 2 g calcium gluconate, D50, insulin Patient left prior to repeat basic metabolic panel after risk and benefit discussion regarding possible heart arrhythmia that could lead to his heart stopping. Differential Diagnosis Differential Diagnoses: The differential diagnosis associated with the presentation includes Please see the discussion above Admission/Observation Consideration of admission/observation: Escalation of care including admission/observation considered Please see the discussion above Lab Data MDM Lab Attestation statement: I reviewed the patient's lab results. Please see the discussion above 11/16/23 18:00 11/16/23 18:00 Labs: Lab Results 11/16/23 11/16/23 11/16/23 Range/Units 18:00 18:04 21:35 WBC 5.1 (4.8-10.8) X10*3/uL RBC 4.42 L (4.60-5.80) X10*6/uL Hgb 12.8 L (14.0-18.0) g/dl Hct 38.4 L (42.0-52.0) % MCV 86.9 (80.0-98.0) fL MCH 29.0 (27.0-33.0) pg MCHC 33.3 (31.0-36.0) g/dl RDW 12.1 (11.0-16.0) % Plt Count 319 (160-400) X10*3/uL MPV 9.3 L (9.4-12.4) fL Immature Gran % (Auto) 0.4 (0.0-0.4) % Neut % (Auto) 61.5 (45-73) % Lymph % (Auto) 21.1 (20-40) % [place] % (Auto) 8.8 (2-11) % Eos % (Auto) 7.0 H (0-4) % Baso % (Auto) 1.2 (0-2) % Lymph # (Auto) 1.1 L (1.2-4.9) X10*3/uL [place] # (Auto) 0.5 (0.1-1.2) X10*3/uL Eos # (Auto) 0.4 (0.0-0.4) X10*3/uL Baso # (Auto) 0.1 (0.0-0.2) X10*3/uL Abs Immat Gran (auto) 0.02 (0.00-0.03) X10*3/uL Absolute Neuts (auto) 3.2 (2.0-8.3) x10*3/uL Absolute Nucleated RBC 0.000 (0.0-0.012) X10*3/uL Nucleated RBC % (auto) 0.0 (0.0-0.2) /100WBC Smear Tech's Comments VERIFIED Sodium 140 (135-145) mmol/L Potassium 5.9 H (3.3-5.1) mmol/L Chloride 104 (96-108) mmol/L Carbon Dioxide 28 (22-29) mmol/L Anion Gap 14 (12-20) BUN 21 H (9-16) mg/dL Creatinine 1.20 (0.5-1.4) mg/dL Estim Creat Clear Calc 73.2 Estimated GFR > 60 POC Glucose 69 (60-115) mg/dL Random Glucose 99 (60-115) mg/dL Calcium 9.7 (8.4-10.2) mg/dL Magnesium 2.2 (1.6-2.6) mg/dL Total Bilirubin 0.2 (0.0-1.0) mg/dL AST 27 (5-37) U/L ALT 39 (0-40) U/L Alkaline Phosphatase 76 (39-117) U/L Total Protein 7.1 (6.5-8.0) g/dL Albumin 4.1 (3.5-5.0) g/dL Lipase 31 (8-78) U/L Urine Color Yellow Urine Appearance Clear Urine pH 5.5 (5.0-9.0) Ur Specific [place] >= 1.030 H (1.005-1.025) Urine Protein 30 (1+) H (Neg-Trace) mg/dL Urine Glucose (UA) Negative (Negative) mg/dL Urine Ketones Negative (Negative) mg/dL Urine Blood Negative (Negative) Urine Nitrite Negative (Negative) Ur Leukocyte Esterase Negative (Negative) Urine RBC 0-2 (0-2) /HPF Urine WBC 0-5 (0-5) /HPF Ur Squamous Epith Cells 0-2 (0-2) /HPF Urine Bacteria None Seen (None Seen) Hyaline Casts 0-2 (0-2) /LPF Salicylates < 5.0 L (15-30) mg/dL Urine Opiates Screen Not Detected (Not Detect) Ur Buprenorphine Scrn Positive H (Not Detect) ng/mL Ur Oxycodone Screen Not Detected (Not Detect) ng/mL Urine Methadone Screen Not Detected (Not Detect) ng/mL Urine Fentanyl Screen POSITIVE H (Not Detect) Ur Barbiturates Screen Not Detected (Not Detect) Ur Phencyclidine Scrn Not Detected (Not Detect) Ur Amphetamines Screen Not Detected (Not Detect) U Benzodiazepines Scrn Not Detected (Not Detect) Urine Cocaine Screen Not Detected (Not Detect) U Marijuana (THC) Screen Not Detected (Not Detect) Ethyl Alcohol < 10 mg/dL Independent Interpretation I performed an independent interpretation of an: EKG Interpretation: Marked sinus bradycardia, HR -43, no STEMI, peak T-waves noted, IL/QTC are within normal limits, QRS -110. External Record Review External record reviewed: Outpatient record and Prior outpatient labs Social Determinants Patient?s care significantly limited by Social Determinants of Health including: Alcoholism and drug addiction in family Critical Care Time Critical Care Time Critical Care Time: Yes Total Critical Care Time: 60 Attestation: I personally attest to this time spent taking care of the patient. Discharge Plan Discharge Clinical Impression: Hyperkalemia, Abnormal EKG Patient Disposition: Left Against Medical Advice Instructions: Potassium Content of Foods List (ED), Hyperkalemia (ED) Additional Instructions: If you change your mind and you would like to be seen in the emergency room please return. Prescriptions: No Action atenolol 50 mg tablet 50 mg PO DAILY Qty: 90 8RF clonidine HCl 0.1 mg tablet 0.1 mg PO TID Qty: 90 8RF ibuprofen 800 mg tablet 800 mg PO Q8H 10 Days Qty: 90 8RF gabapentin 300 mg capsule 300 mg PO DAILY Qty: 90 8RF gabapentin 600 mg tablet 600 mg PO TID Qty: 90 0RF naproxen 500 mg tablet 500 mg PO BID PRN (Reason: pain) Qty: 20 0RF methadone 120 mg PO DAILY amlodipine 5 mg tablet 5 mg PO DAILY cyclobenzaprine 10 mg tablet 10 mg PO BEDTIME 30 Days Qty: 30 0RF triamcinolone acetonide 0.5 % cream 1 appl topical DAILY 10 Days Qty: 15 0RF albuterol sulfate 90 mcg/actuation HFA aerosol inhaler 2 puff inhalation Q6H PRN (Reason: shortness of breath or wheezing) 10 Days Qty: 6.7 0RF oxycodone-acetaminophen [Percocet] 5-325 mg tablet 1 tab PO Q6H PRN (Reason: pain (scale score 4-6)) 6 Days Qty: 13 0RF Rx Instructions: Q 6 hours day 1 Q8 hours day 2 q12 hours day 3 q12 day 4 qd day 5 qd day 6 levofloxacin 500 mg tablet 500 mg PO DAILY Qty: 56 0RF Stand Alone Forms: Against Medical Advice Interventions: ED Discharge Assessment Last Done: 11/16/23 23:31 Discharge Date/Time: 11/16/23 23:32 Print Language: Mauritanian
[2023-11-16 18:11] LABS: SCAN SMEAR FLAG 1
[2023-11-16 18:13] LABS: Appearance Urine Clear; Color Urine Yellow; Glucose Urine UA Negative (Negative); Leukocyte Esterase Urine Negative (Negative); Nitrite Urine Negative (Negative); PH 5.5 (5.0-9.0); Specific Gravity - Urine >= 1.030 (1.005-1.025); UMIC TRIGGER UACC YES; Urine Blood Negative (Negative); Urine Ketones Negative (Negative); Urine Protein 30 (1+) mg/dL (Neg-Trace)
[2023-11-16 18:17] LABS: Basophils Absolute Auto 0.1 X10*3/uL (0.0-0.2); Basophils Percent Auto 1.2 % (0-2); Eosinophils Absolute Auto 0.4 X10*3/uL (0.0-0.4); Hematocrit 38.4 % (42.0-52.0); Hemoglobin 12.8 g/dl (14.0-18.0); Imm Gran Abs Auto 0.02 X10*3/uL (0.00-0.03); Imm Gran Pct Auto 0.4 % (0.0-0.4); Lymphocytes Absolute Auto 1.1 X10*3/uL (1.2-4.9); Lymphocytes Percent Auto 21.1 % (20-40); MANUAL DIFF FLAG SCAN; Mean Corpuscular HGB Conc 33.3 g/dl (31.0-36.0); Mean Corpuscular Volume 86.9 fL (80.0-98.0); Mean Platelet Volume 9.3 fL (9.4-12.4); Monocytes Absolute Auto 0.5 X10*3/uL (0.1-1.2); Monocytes Percent Auto 8.8 % (2-11); Neutrophils Absolute Auto 3.2 x10*3/uL (2.0-8.3); Neutrophils Percent Auto 61.5 % (45-73); Platelet Count 319 X10*3/uL (160-400); Red Blood Count 4.42 X10*6/uL (4.60-5.80); Red Cell Distribution Width 12.1 % (11.0-16.0); White Blood Count 5.1 X10*3/uL (4.8-10.8)
[2023-11-16 18:19] LABS: Bacteria Urine None Seen (None Seen); Hyaline Casts Urine 0-2 /LPF (0-2); RBC Urine 0-2 /HPF (0-2); Squamous Epithelial Cell Urine 0-2 /HPF (0-2); WBC Urine 0-5 /HPF (0-5)
[2023-11-16 18:27] LABS: Amphetamine Screen Urine Not Detected (Not Detect); Barbiturates, Urine Not Detected (Not Detect); Benzodiazepines Screen Urine Not Detected (Not Detect); Buprenorphine Scr Positive (Not Detect); Cannabinoid Screen Urine Not Detected (Not Detect); Cocaine Screen Urine Not Detected (Not Detect); Fentanyl, urine POSITIVE (Not Detect); Methadone Screen, Urine Not Detected (Not Detect); Opiate Screen Urine Not Detected (Not Detect); Oxycodone Screen Urine Not Detected (Not Detect); Phencyclidine Screen Urine Not Detected (Not Detect)
[2023-11-16 18:32] LABS: Salicylate < 5.0 mg/dL (15-30)
[2023-11-16 18:34] LABS: Alanine Aminotransferase 39 U/L (0-40); Albumin Level 4.1 g/dL (3.5-5.0); Alkaline Phosphatase 76 U/L (39-117); Anion Gap 14 (12-20); Aspartate Amino Transferase 27 U/L (5-37); Bilirubin Total 0.2 mg/dL (0.0-1.0); Blood Urea Nitrogen 21 mg/dL (9-16); Calcium 9.7 mg/dL (8.4-10.2); Carbon Dioxide 28 mmol/L (22-29); Chloride 104 mmol/L (96-108); Creatinine Clr Calc Pharmacy 73.2; Estimated Glomerular Filt Rate > 60; Ethanol < 10 mg/dL; Glucose Random 99 mg/dL (60-115); Lipase 31 U/L (8-78); Magnesium 2.2 mg/dL (1.6-2.6); Potassium 5.9 mmol/L (3.3-5.1); Sodium 140 mmol/L (135-145); Total Protein 7.1 g/dL (6.5-8.0)
[2023-11-16 18:35] LABS: SLIDE REVIEW VERIFIED
[2023-11-16 20:42] VITALS: BP 99/48; PULSE 45; RESP 16; TEMP 36.6; O2SAT 97
[2023-11-16] MEDS: 0.9 % Sodium Chloride 1,000 ML 999 ML IV (21:23)
[2023-11-16] MEDS: Calcium Gluconate/NaCl,Iso-Osm 2 GM/100 ML PLAST..BAG IV (21:27)
[2023-11-16 21:38] LABS: Glucose, Whole Blood 69 mg/dL (60-115)
[2023-11-16] MEDS: Dextrose 10 % 250 ML 750 ML IV (22:22)
--- NOTE | 2023-11-16 22:37 | PC.NURSE ---
Pt brought back to exam room- pt sts he just of detox today sts he was on Benzos, fent, cocaine (IV) he is here today to see if he can get a couple days of Librium to help get him through until Tuesday when he [facility] senior living and the court to get placed in another sober house. pt found to be bradycardic on arrival to exam room at 46 bpm, EKG obtained, IV access established, pt placed on classroom monitor. pt found to have elevated k+ 5.2 calcium gluconate given, in addtion to D10% and 5 units insulin(see MAR). pt anxious about going into treatment program as it is through the corrections department. pt resting quietly at this time call [place] within reach- pending provider re-eval
[2023-11-16] MEDS: Insulin Regular, Human 100 UNIT/ML 3 ML VIAL IVPUSH (22:42)
--- NOTE | 2023-11-16 23:29 | PC.NURSE ---
this RN resumed care of pt at 1100. pt seen by ED provider/aware of plan of care. pt did not agree w/ plan of care and did not want repeat labs to be obtained. pt became increasingly agitated when attempting to educate pt on importance of lab work. IV discontinued to this RN. pt refused to sign discharge paperwork as well as AMA paperwork. pt left w/ personal belongings. now leaving ED.
[2023-11-16 23:31] VITALS: BP 0/0; PULSE 0; RESP 0; TEMP -17.7; TEMP 0; O2SAT 0
== END 2023-11-16 23:32 | disposition left against medical advice (07) ==
PROVIDERS: Physician Assistant Medical; Emergency Provider Student in an Organized Health Care Education/Training Program
DX: E87.5 Hyperkalemia (principal); F11.10 Opioid abuse, uncomplicated; R00.1 Bradycardia, unspecified; R94.31 Abnormal electrocardiogram [ECG] [EKG]; R11.0 Nausea; Z79.899 Other long term (current) drug therapy; Z71.9 Counseling, unspecified; Z87.891 Personal history of nicotine dependence
CPT/HCPCS: 36415; 80053; 80179; 80307; 81001; 82947; 83690; 83735; 85025; 93005; 96361; 96374; 96375; 99285; J0613

== ENCOUNTER → 2023-11-16 20:46 | Outpatient (BNV) | payer MEDICAID, SELFPAY | PROVIDERS: Emergency Provider Student in an Organized Health Care Education/Training Program; Visit Provider Internal Medicine Cardiovascular Disease | DX: R00.1 Bradycardia, unspecified (principal); R94.31 Abnormal electrocardiogram [ECG] [EKG] | CPT/HCPCS: 93010 ==

== ENCOUNTER 2024-08-09 11:22 | Outpatient (REF) | payer MEDICAID, SELFPAY ==
[2024-08-09 13:01] LABS: MANUAL DIFF FLAG NO
[2024-08-09 13:13] LABS: Basophils Percent Auto 0.9 % (0-2); Eosinophils Percent Auto 1.2 % (0-4); Hematocrit 42.3 % (42.0-52.0); Hemoglobin 14.5 g/dl (14.0-18.0); Imm Gran Abs Auto 0.01 X10*3/uL (0.00-0.03); Imm Gran Pct Auto 0.3 % (0.0-0.4); Lymphocytes Absolute Auto 0.8 X10*3/uL (1.2-4.9); Mean Corpuscular HGB Conc 34.3 g/dl (31.0-36.0); Mean Corpuscular Volume 90.4 fL (80.0-98.0); Monocytes Absolute Auto 0.3 X10*3/uL (0.1-1.2); Neutrophils Absolute Auto 2.3 x10*3/uL (2.0-8.3); Neutrophils Percent Auto 65.6 % (45-73); Platelet Count 226 X10*3/uL (160-400); Red Blood Count 4.68 X10*6/uL (4.60-5.80); Red Cell Distribution Width 11.9 % (11.0-16.0); White Blood Count 3.4 X10*3/uL (4.8-10.8)
[2024-08-09 13:17] LABS: Appearance Urine Clear; Color Urine Yellow; Glucose Urine UA Negative (Negative); Leukocyte Esterase Urine Negative (Negative); Nitrite Urine Negative (Negative); PH 6.5 (5.0-9.0); Urine Blood Negative (Negative); Urine Ketones Negative (Negative); Urine Protein Negative (Neg-Trace)
[2024-08-09 13:21] LABS: Bacteria Urine None Seen (None Seen); Hyaline Casts Urine 0-2 /LPF (0-2); RBC Urine 0-2 /HPF (0-2); Squamous Epithelial Cell Urine 0-2 /HPF (0-2); WBC Urine 0-5 /HPF (0-5)
[2024-08-09 14:01] LABS: Alanine Aminotransferase 39 U/L (0-40); Albumin Level 4.3 g/dL (3.5-5.0); Alkaline Phosphatase 73 U/L (39-117); Anion Gap 10 (12-20); Aspartate Amino Transferase 60 U/L (5-37); Bilirubin Total 0.9 mg/dL (0.0-1.0); Blood Urea Nitrogen 11 mg/dL (9-16); Calcium 8.7 mg/dL (8.4-10.2); Carbon Dioxide 26 mmol/L (22-29); Chloride 109 mmol/L (96-108); Cholesterol 131 mg/dL (<200); Estimated Glomerular Filt Rate > 60; Glucose Random 102 mg/dL (60-115); HDL Cholesterol 50 mg/dL (>40); LDL Cholesterol Calculated 73 mg/dL (<100); Sodium 141 mmol/L (135-145); Total Protein 6.9 g/dL (6.5-8.0); Triglycerides 42 mg/dL (<150)
[2024-08-09 14:09] LABS: Creatinine Urine 59.41 mg/dL; Microalbumin Urine < 5.0 mg/L
[2024-08-09 14:37] LABS: Prostate Specific Antigen 0.93 ng/mL (<0.05-4.0)
--- OUTSIDE RECORDS SUMMARY | 2024-08-09 15:17 | XMS_ITS | Clinical Summary ---
Author Organization [facility] [employer] [facility] ity Address [address] [place] [address] Care Team Providers Care Artist Manager Name Role Phone Unavailable Primary Care Provider Unavailabl e Social History Tobacco Use Types Packs/Day Years Used Date Smoking Tobacco: Never Assessed Sex and Gender Information Value Date Recorded Sex Assigned at Not on file Gender Identity Not on file Sexual Orientation Not on file Plan of Treatment Health Maintenance Due Date Last Done Comments DTaP,Tdap,and Td Vaccines (1 - Tdap) 1995 Hepatitis B Vaccines (1 of 3 - 19+ 3-dose series) 1995 Cholesterol Screening (Lipid Panel) 02/11/2024 Colorectal Cancer Screening: Colonoscopy 02/11/2024 Depression Screening 02/11/2024 HIV Screening 02/11/2024 Hepatitis C Screening 02/11/2024 Social Influencers of Health Screening 02/11/2024 COVID-19 Vaccine (2023-2 5 season) 2024 Influenza Vaccine (#1) 2024 HIB Vaccines Aged Out No longer eligi ble based on patient's age to complete this topic HPV Vaccines Aged Out No longer eligi ble based on patient's age to complete this topic Hepatitis A Vaccines Aged Out No long er eligible based on patient's age to complete this topic IPV Vaccines Aged Out No longer eligi ble based on patient's age to complete this topic MMR Vaccines Aged Out No longer eligi ble based on patient's age to complete this topic Meningococcal ACWY Vaccine Aged Out N o longer eligible based on patient's age to complete this topic Pneumococcal Vaccine: Pediat rics (0 to 5 Years) and At-Risk Patients (6 to 64 Years) Aged Out No longer eligible b ased on patient's age to complete this topic RSV Immunization Patients Un hola 20 months Aged Out No longer eligible b ased on patient's age to complete this topic Varicella Vaccines Aged Out No longer eligible based on patient's age to complete this topic
--- OUTSIDE RECORDS SUMMARY | 2024-08-09 15:17 | XMS_ITS | Clinical Summary ---
Author Organization [facility] Address [address] [place] [address] Care Team Providers Care Business Education Instructor Name Role Phone Camila Pillai Primary Care Provider [phone] Source Comments PLEASE NOTE, if this patient is a minor, it may be UNLAWFUL to discuss sensitive information that is contained in these records (such as FAMILY PLANNING, MENTAL HEALTH or SUBSTANCE ABUSE) with the minor patient's parent or other person without the patient's specific authorization.[facility] Allergies No known active allergies Medications hydrOXYzine HCL (ATARAX) 50 mg tabletIndication s:Anxiety Take 1 Tablet by mouth 2 (two) times daily as needed for anxiety or sleep 90 Tablet 3 4 Active amLODIPine (NORVASC) 5 mg tabletIndication s:Hypertension, unspecified type Take 1 Tablet by mouth once daily 90 Tablet 3 4 Active atenoloL (TENORMIN) 25 mg tabletIndication s:Hypertension, unspecified type Take 1 Tablet by mouth once daily 90 Tablet 3 4 Active lisinopriL 40 mg tabletIndication s:Hypertension, unspecified type Take 1 Tablet by mouth once daily 90 Tablet 3 4 Active gabapentin (NEURONTIN) 800 mg tabletIndication s:Neck pain, chronic Take 1 Tablet by mouth once daily 30 Tablet 4 Active buprenorphine (SUBLOCADE) 300 mg/1.5 mL injectionIndicat ions:Opioid use disorder Inject 1.5 mL into the skin once for 1 dose 1.5 mL 3 4 Active cloNIDine (CATAPRES) 0.1 mg tabletIndication s:Opioid use disorder, moderate, in sustained remission, on maintenance therapy ([facility]) Take 1 Tablet by mouth 2 (two) times daily 28 Tablet 4 Active buprenorphine-na loxone (SUBOXONE FILM) 8-2 mg SL filmIndications: Opioid use disorder Place 1 Strip under the tongue 3 (three) times daily Not to be dispensed and started until 11/28/23 21 Each Active Active Problems Problem Noted Date Diagnosed Date Attention deficit hyperactiv ity disorder (ADHD), predominantly inattentive type 10/05/2023 Opioid use disorder 09/01/2023 Anxiety 09/01/2023 Hypertension 09/01/2023 Neck pain, chronic 09/01/2023 Encounters Date Type Department Care Team Description 05/09/2024 / TELEPHONE [address] [address] [place] Barr Opioid use disorder (Primary Dx); Anxiety; Opioid use disorder, moderate, in sustained remission, on maintenance therapy ([facility]); Attention deficit hyperactivity disorder (ADHD), predominantly inattentive type; Uncomplicated opioid dependence ([facility]) from Last 3 Months Social History Tobacco Use Types Packs/Day Years Used Date Smoking Tobacco: Never Passive Smoke Exposure: Never Smokeless Tobacco: Never Tobacco Cessation:Counseling Given: Not Answered Alcohol Use Standard Drinks/Week Comments Never 0 (1 standard drink = 0.6 oz pur e alcohol) Social Connections Answer Date Recorded Connectedness 0 03/29/2024 Financial Resource Strain Answer Date R ecorded Financial Resource Strain 0 2022 Stress Answer Date Recorded Stress 0 05/03/2023 Physical Activity Answer Date Recorded Physical Activity 0 05/03/2023 Food Insecurity Answer Date Recorded Food 0 04/05/2024 Transportation Needs Answer Date Record ed Transportation 0 05/03/2023 Housing Stability Answer Date Recorded Housing 0 05/03/2023 Safety and Environment Answer Date Sean rded Safety 0 05/03/2023 Utilities Answer Date Recorded Utilities 0 05/03/2023 Employment Answer Date Recorded Stress 0 03/29/2024 Sex and Gender Information Value Date Recorded Sex Assigned at Male 09/01/2023 7:19 AM PST Legal Sex Male 8:55 PM PDT Gender Identity Male 09/01/2023 7:19 AM PST Sexual Orientation Don't know 09/01/2023 7: 19 AM PST Last Filed Vital Signs Vital Sign Reading Time Taken Comments Blood Pressure 135/82 11/16/2023 2:42 PM EDT Pulse 67 11/16/2023 2:42 PM EDT Temperature 36.6 ??C (97.9 ??F) 08/25/2023 4:59 PM ES T Respiratory Rate 18 08/25/2023 4:59 PM EST Oxygen Saturation 98% 11/16/2023 2:42 PM EDT Inhaled Oxygen Concentration - - Weight 74.8 kg (165 lb) 08/25/2023 4:59 PM EST Height - - Body Mass Index - - Plan of Treatment Health Maintenance Due Date Last Done Comments Dental Prophy 1976 Imm-DTaP/Tdap/Td (1 - Tdap) 1995 Imm-Hepatitis B (1 of 3 - 19 + 3-dose series) 1995 CT Colonography 2021 Colonoscopy 2021 Colorectal Cancer Screening 2021 FIT/gFOBT 2021 Fecal DNA 2021 Flexible Sigmoidoscopy 2021 Depression Monitoring 12/30/2023 09/29/2023, 024 [id number] ( season) 2024 Imm-Influenza (#1) 2024 Alcohol and Drug Screen 07/11/2024 09/29/2023, 09/28 Dental BW 08/06/2024 08/04/2023 Dental Examination 08/06/2024 08/04/2023 Dental Perio Charting 08/06/2024 08/04/2023 Tobacco Screening 08/25/2024 08/25/2023 Diabetes Screening 09/01/2026 09/01/2023 Lipid Screening 09/01/2026 09/01/2023 Dental FMX/Pano 08/06/2028 08/04/2023 HIV Screening Completed 09/01/2023 Hepatitis C Screening Completed 09/01/2023, 024 Procedures Procedure Name Priority Date/Time Associated Diagnosis Comments HIV 1/2 AG & AB W/RFLX (4TH GEN) Routine 09/01/2023 1:15 PM EST Hypertension, unspecified type Anxiety Opioid use disorder ACUTE HEPATITIS PANEL W/RFLX Routine 09/01/2023 1:15 PM EST Hypertension, unspecified type Anxiety Opioid use disorder COMPREHENSIVE METABOLIC PANEL Routine 09/01/2023 1:15 PM EST Hypertension, unspecified type Anxiety Opioid use disorder LIPID PANEL Routine 09/01/2023 1:15 PM EST Hypertension, unspecified type Anxiety Opioid use disorder INTRAORAL - COMP SERIES OF RADIOGRAPHIC IMAGES Routine 08/04/2023 4:20 PM EST Caries of enamel (incipient) Caries COMP ORAL EVALUATION - NEW/ESTABLISHED PATIENT Routine 08/04/2023 4:20 PM EST Caries of enamel (incipient) Caries from Last 3 Months or Most Recently Relevant to Health Maintenance Results * HIV 1/2 AG & AB W/RFLX (4TH GEN) (09/01/2023 1:15 PM EST) HIV AG/AB, 4TH GEN NON-REAC TIVE NON-REAC TIVE [facility] Comment: HIV-1 antigen and HIV-1/HIV-2 antibodies were not detected. There is no laboratory evidence of HIV infection. PLEASE NOTE: This information has been disclosed to you from records whose confidentiality may be protected by state law. ??If your state requires such protection, then the state law prohibits you from making any further disclosure of the information without the specific written consent of the person to whom it pertains, or as otherwise permitted by law. A general authorization for the release of medical or other information is NOT sufficient for this purpose. ?? For additional information please refer to http://education.InsideSales.com.[employer]os Energy/faq/XYI807 (This link is being provided for informational/ educational purposes only.) The performance of this assay has not been clinically validated in patients less than 2 years old. Blood Blood / Unknown 09/01/2023 1 :15 PM EST 09/01/2023 1:17 PM EST Narrative [facility] - 09/03/2023 2:33 PM EST FASTING:NO us Francisco Javier Vivar PA-C LAB - BLOOD DRAW Final Result [facility] [address] [place] [id number], [facility] [address] [address] * (ABNORMAL) ACUTE HEPATITIS PANEL W/RFLX (09/01/2023 1:15 PM EST) [facility] HEPATITIS B SURFACE ANTIGEN NON-REACT LISSA NON-REACT LISSA [facility] COMMENT [employer] [facility] HEPATITIS A IGM ANTIBODY NON-REACT LISSA NON-REACT LISSA [facility] [facility] HEPATITIS B CORE IGM ANTIBODY NON-REACT LISSA NON-REACT LISSA [facility] [facility] COMMENT [employer] [facility] HEPATITIS C ANTIBODY REACTIVE( A) NON-REACT LISSA [facility] [facility] Comment: Based on this result, the sample will be tested for HCV RNA by a Nucleic Acid Amplification Test (NAAT) to determine if the patient has a current active infection. COMMENT [facility] [facility] Blood Blood / Unknown 09/01/2023 1 :15 PM EST 09/01/2023 1:17 PM EST Narrative [employer] [facility] - 09/03/2023 2:33 PM EST FASTING:NO For additional information, please refer to http://[employer].SimpleTuition/faq/WQN341 (This link is being provided for informational/ educational purposes only.) For additional information, please refer to http://[employer].SimpleTuition/faq/FBU171 (This link is being provided for informational/ educational purposes only.) For additional information, please refer to http://[employer].SimpleTuition/faq/NNH106 (This link is being provided for informational/ educational purposes only.) Francisco Javier Vivar PA-C LAB - BLOOD DRAW Final Result [employer] [facility] [address] [address], [facility] [facility] [address] [place] [address] * (ABNORMAL) LIPID PANEL (09/01/2023 1:15 PM EST) [facility] CHOLESTEROL, TOTAL 147 <200 mg/dL [facility] [facility] HDL CHOLESTEROL 32(L) > OR = 40 mg/dL [employer] [facility] TRIGLYCERIDES 62 <150 mg/dL [facility] LDL-CHOLESTEROL 101(H) 99 mg/dL (calc) [facility] Comment: Reference range: <100 Desirable range <100 mg/dL for primary prevention; ?? <70 mg/dL for patients with CHD or diabetic patients with > or = 2 CHD risk factors. LDL-C is now calculated using the Kait calculation, which is a validated novel method providing better accuracy than the Friedewald equation in the estimation of LDL-C. Petar SS et al. JYOTI. 2013;310(19): 0326-1548 (http://education.BitGym/faq/IRL039) CHOL/HDLC RATIO 4.6 <5.0 (calc) [facility] NON-HDL CHOLESTEROL 115 <130 mg/dL (calc) [facility] Comment: For patients with diabetes plus 1 major ASCVD risk factor, treating to a non-HDL-C goal of <100 mg/dL (LDL-C of <70 mg/dL) is considered a therapeutic option. Blood Blood / Unknown 09/01/2023 1 :15 PM EST 09/01/2023 1:17 PM EST Narrative [facility] - 09/03/2023 2:33 PM EST FASTING:NO Francisco Javier Vivar PA-C LAB - BLOOD DRAW Final Result [facility] [address] [place] [address], [facility] [address] [place] [phone] * (ABNORMAL) COMPREHENSIVE METABOLIC PANEL (09/01/2023 1:15 PM EST) GLUCOSE 145(H) 65 - 139 mg/dL [facility] Comment: ?Non-fasting reference interval UREA NITROGEN (BUN) 16 7 - 25 mg/dL [facility] CREATININE (blood) 0.85 0.60 - 1.29 mg/dL [facility] EGFR 108 > OR = 60 mL/min/1. 73m2 [facility] BUN/CREATININE RATIO SEE NOTE: [facility] Comment: ?? Not Reported: BUN and Creatinine are within ?? reference range. ? SODIUM 136 135 - 146 mmol/L [facility] [facility] POTASSIUM 4.1 3.5 - 5.3 mmol/L [facility] [facility] CHLORIDE 101 98 - 110 mmol/L [facility] [facility] CARBON DIOXIDE 24 20 - 32 mmol/L [facility] [facility] [employer] [facility] CALCIUM 9.0 8.6 - 10.3 mg/dL [facility] [facility] PROTEIN, TOTAL 6.6 6.1 - 8.1 g/dL [facility] [facility] ALBUMIN 4.2 3.6 - 5.1 g/dL [facility] [facility] GLOBULIN 2.4 1.9 - 3.7 g/dL (calc) [facility] [facility] ALBUMIN/GLOBULI N RATIO 1.8 1.0 - 2.5 (calc) [facility] [facility] BILIRUBIN, TOTAL 0.6 0.2 - 1.2 mg/dL [facility] [facility] ALKALINE PHOSPHATASE 70 36 - 130 U/L [facility] [facility] AST 131(H) 10 - 40 U/L [facility] [facility] ALT 103(H) 9 - 46 U/L [facility] [facility] Blood Blood / Unknown 09/01/2023 1 :15 PM EST 09/01/2023 1:17 PM EST Narrative [facility] - 09/03/2023 2:33 PM EST FASTING:NO Francisco Javier Vivar PA-C LAB - BLOOD DRAW Edited Resul t - Final [facility] [address] [address], [facility] [facility] [address] [address] from Last 3 Months or Most Recently Relevant to Health Maintenance Insurance [place] MEDICA[place] [address] [employer] [facility] Care Teams Business Education Instructor Relationship Specialty Start Date End Date Camila Pillai PA [address] [place] [address] PCP - General Primary Care 09/06/23
--- OUTSIDE RECORDS SUMMARY | 2024-08-09 15:17 | XMS_ITS | Encounter Summary ---
Author Organization [facility] Address [address] [place] [address] Care Team Providers Care Manufactured Buildings Repairer Name Role Phone Camila Pillai Primary Care Provider [phone] Encounter Details Date Type Department Care Team (Late st Contact Info) Description 08/31/2023 / TELEPHONE [facility] [address] [place] [address] Adrien Roberson [address] [place] [address] Social History Tobacco Use Types Packs/Day Years Used Date Smoking Tobacco: Never Passive Smoke Exposure: Never Smokeless Tobacco: Never Social Connections Answer Date Recorded Social Connections and Isolation 0 05/03/2023 Financial Resource Strain Answer Date R ecorded Financial Resource Strain 0 2022 Stress Answer Date Recorded Stress 0 05/03/2023 Physical Activity Answer Date Recorded Physical Activity 0 05/03/2023 Food Insecurity Answer Date Recorded Food 0 05/03/2023 Transportation Needs Answer Date Record ed Transportation 0 05/03/2023 Housing Stability Answer Date Recorded Housing 0 05/03/2023 Safety and Environment Answer Date Sean rded Safety 0 05/03/2023 Utilities Answer Date Recorded Utilities 0 05/03/2023 Employment Answer Date Recorded Employment 0 05/03/2023 Sex and Gender Information Value Date Recorded Sex Assigned at Male 09/01/2023 7:19 AM PST Legal Sex Male 8:55 PM PDT Gender Identity Male 09/01/2023 7:19 AM PST Sexual Orientation Don't know 09/01/2023 7: 19 AM PST COVID-19 Exposure Response Date Recorded In the last 10 days, have yo u been in contact with someone who was confirmed or suspected to have Coronavirus/COVID-19? No / Unsure 09/01/2023 1:05 PM EST documented as of this encounter Plan of Treatment Not on file documented as of this encounter Visit Diagnoses Not on filedocumented in this encounter Additional Health Concerns Assessment Noted Time PHQ-9 Depression Total Score: 15 024 4:00 PM PST documented as of this encounter Care Teams Manufactured Buildings Repairer Relationship Specialty Start Date End Date Camila Pillai PA [address] [place] [address] PCP - General Primary Care 09/06/23 documented as of this encounter
[2024-08-10 04:05] LABS: HBS Num1 5.28 mIU/mL (0-7.99); HBsAGNum1 0.41 S/CO (0.00-0.99); Hepatitis B Surface Antigen Negative (Negative); ~Hepatitis B Surface Antibody NONREACTIVE (Nonreactive)
[2024-08-10 04:07] LABS: Hepatitis A Antibody IgG REACTIVE (Nonreactive); ~Hepatitis A Antibody IgG 11.73 S/CO (0.00-0.99)
[2024-08-10 05:23] LABS: CT PCR NOT DETECTED (Not Detect.); NG PCR NOT DETECTED (Not Detect.)
[2024-08-10 15:02] LABS: HCV Log PCR <1.18 NOT DETECTED Log IU/mL (NOT DETECTED); HepC Viral Load <15 NOT DETECTED IU/mL (NOT DETECTED)
== END 2024-08-09 11:23 | disposition home or self-care (01) ==
LOC: HO.HHCL 11:22
PROVIDERS: Visit Provider Internal Medicine Geriatric Medicine
DX: I10 Essential (primary) hypertension (principal); R35.1 Nocturia; R36.1 Hematospermia; Z86.19 Personal history of other infectious and parasitic diseases
CPT/HCPCS: 80053; 80061; 81001; 82043; 82570; 84153; 85025; 86706; 86708; 87340; 87491; 87522; 87591

== ENCOUNTER 2024-10-30 13:40 | Outpatient (REF) | payer MEDICAID, SELFPAY ==
[2024-10-30 16:05] LABS: MANUAL DIFF FLAG NO
--- OUTSIDE RECORDS SUMMARY | 2024-10-30 16:14 | XMS_ITS | Clinical Summary ---
[facility] Organization [facility] Address [address] [place] [address] Care Team Providers Care Vp Cardiovascular Service Line Name Role Phone Unavailable Primary Care Provider Unavailabl e Social History Tobacco Use Types Packs/Day Years Used Date Smoking Tobacco: Never Assessed Sex and Gender Information Value Date Recorded Sex Assigned at Not on file Legal Sex Male 9:20 AM EST Gender Identity Not on file Sexual Orientation [...] Vaccine (2023-2 5 season) 2024 Influenza Vaccine (Season Ended) 2025 HIB Vaccines Aged Out No longer eligi [...] patient's age to complete this topic Meningococcal B Vaccine Aged Out No l onger eligible based on patient's age to complete [...]
--- OUTSIDE RECORDS SUMMARY | 2024-10-30 16:14 | XMS_ITS | Clinical Summary ---
Author Organization [employer] Address [address] [facility] [address] [place] [address] Care Team Providers Care Crap Game Box Person Name Role Phone Name, Andrei PAULINO Primary Care Provider [phone] Allergies No known active allergies Medications atenolol (Tenormin) 25 MG tabletIndication s:Hypertension, unspecified type Take 1 tablet (25 mg) by mouth Once per day. 30 tablet 11 5 08/08/19 26 Active furosemide (Lasix) 20 MG tabletIndication s:Hypertension, unspecified type Take 1 tablet (20 mg) by mouth Once per day. 30 tablet 5 08/08/19 26 Active Blood Pressure kitIndications:H ypertension, unspecified type Use once a day 1 kit 5 Active nicotine (Nicoderm CQ) 21 MG/24HR patch Place 1 patch on the skin 1 (one) time each day at the same time. 30 patch 5 Active amLODIPine (Norvasc) 5 MG tablet Take 5 mg by mouth Once per day. 5 Active Buprenorphine HCl-Naloxone HCl (Suboxone) 8-[address] 1 strip under the tongue 2 times daily. 5 Active cloNIDine (Catapres) 0.1 MG tablet Take 0.1 mg by mouth 2 times daily. 5 Active lisinopril 40 MG tablet Take 40 mg by mouth Once per day. 5 Active QUEtiapine (SEROquel) 25 MG tablet TAKE 1 TO 2 TABLETS BY MOUTH EVERY NIGHT AT BEDTIME NEEDED 5 Active guanFACINE (Intuniv) 1 mg 24 hr tablet TAKE 1 TABLET BY MOUTH EVERY EVENING ADHD 5 Active tadalafil (Cialis) 20 MG tablet Take 1 tablet (20 mg) by mouth if needed each day for erectile dysfunction. 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 Opioid use disorder 09/01/2023 Neck pain, chronic 09/01/2023 Anxiety 09/01/2023 Encounters Date Type Department Care Team Description 10/30/2024 1:00 PM EDT Office Visit [facility] [address] [place] [phone] Andrei Chicas MD Hypertension, unspecified type (Primary Dx); Opioid use disorder; Routine screening for STI (sexually transmitted infection); Erectile dysfunction, unspecified erectile dysfunction type 10/30/2024 Travel 10/24/2024 Telephone [facility] [address] [place] [address] [phone] Bridgette Mansfield MA chart prep 10/23/2024 Travel 09/21/2024 Population Health Risk Score Community Care [facility] ([facility] Department [address] [place] [address] [phone] Provider, Population Health Generic 08/24/2024 Travel 08/23/2024 Telephone [facility] [address] [place] [address] [phone] Andrei Chicas MD 2024 Telephone [facility] [address] [place] [address] 08951 Maren Jones, BETTY 2024 Telephone [facility] [address] [place] [address] [phone] Maren Jones, RN Error (VOID this visit) 2024 Travel 08/14/2024 Orders Only [facility] [address] [place] [phone] Andrei Chicas MD Leukopenia, unspecified type (Primary Dx) 08/08/2024 1:00 PM EST Office Visit [facility] [address] [place] [address] Name, MD Andrei Hypertension, unspecified type (Primary Dx); Screening for cholesterol level; Hematospermia; Nocturia; Depression with anxiety; Opioid dependence, uncomplicated (CMS/HCC); History of hepatitis C; Gingivitis; Tobacco abuse 08/08/2024 Travel from Last 3 Months Social History Tobacco Use Types Packs/Day Years Used Date Smoking Tobacco: Never Smokeless Tobacco: Current Tobacco Cessation:Ready to Q uit: Not Asked; Counseling Given: Not Answered Alcohol Use Standard Drinks/Week Comments Never 0 (1 standard drink = 0.6 oz pur e alcohol) Depression Answer Date Recorded Patient Health Questionnaire-9 Score 5 08/08/2024 Patient Health Questionnaire-9 Score 5 08/08/2024 Last PHQ-9: Questionnaire Data Not on file 0 08/08/2024 Housing Stability Answer Date Recorded What is your housing situation today? I do not have housing (Staying with others, in a hotel, in a snf, living outside on the street, on a beach, in a car, or in a park 08/08/[address] you li ve. Do you have problems with any of the following? None of the above 08/08/2024 Food Insecurity Answer Date Recorded Within the past 12 months, y ou worried that your food would run out before you got money to buy more: Never True 08/08/2024 Within the past 12 months,th e food you bought just didn't last and you didn't have enough money to get more: Never True Transportation Answer Date Recorded In the past 12 months, has l ack of transportation kept you from medical appts, meetings, work or from getting things needed for daily living? I am not sure 08/08/2024 Utilities Answer Date Recorded In the past 12 months, has t he electric, gas, oil or water company threatened to shut off services in your home? No 08/08/2024 Depression Answer Date Recorded Patient Health Questionnaire-2 Score 0 08/08/2024 Internet Access Answer Date Recorded Internet Access Q1 Yes 08/08/2024 Internet Access Q2 Not on file 08/08/2024 Sex and Gender Information Value Date Recorded Sex Assigned at Male 09/29/2023 4:55 PM EDT Legal Sex Male 3:50 PM EDT Gender Identity Male 09/29/2023 4:55 PM EDT Sexual Orientation Straight 08/08/2024 12 :28 PM EST Last Filed Vital Signs Vital Sign Reading Time Taken Comments Blood Pressure 145/89 10/30/2024 1:26 PM EDT Pulse 64 10/30/2024 1:12 PM EDT Temperature 37.1 ??C (98.7 ??F) 10/30/2024 1:12 PM ED T Respiratory Rate 21 10/30/2024 1:12 PM EDT Oxygen Saturation 99% 10/30/2024 1:12 PM EDT Inhaled Oxygen Concentration - - Weight 74.6 kg (164 lb 6.4 oz) 10/30/2024 1:12 P M EDT Height 175.3 cm (5' 9 ) 10/30/2024 1:12 PM EDT Body Mass Index 24.28 10/30/2024 1:12 PM EDT Plan of Treatment Health Maintenance Due Date Last Done Comments CT Colonography 1976 Colonoscopy 1976 Colorectal Cancer Screening 1976 FIT DNA/Cologuard 1976 FIT 1976 FOBT 1976 Sigmoidoscopy 1976 Family Planning (PISQ) 1991 DTaP/Tdap/Td Vaccines (1 - Tdap) 1995 Hepatitis A Vaccines (1 of 2 - Risk 2-dose series) 1995 Hepatitis B Vaccines (1 of 3 - 19+ 3-dose series) 1995 COVID-19 Vaccine ( - 2023-2 5 season) 2024 Influenza Vaccine (#1) 2024 Alcohol/Substance Use Screening 08/08/2025 08/08/2024 Depression Screening 08/08/2025 08/08/2024, 08/08/2024 SDOH Screening 08/08/2025 08/08/2024 Tobacco Screening 10/30/2025 10/30/2024 Zoster Vaccines (1 of 2) 2026 Lipid Panel 08/09/2029 08/09/2024 RSV Patients and Patients Aged 60 years or older (1 - 1-dose 75+ series) 2051 HIV Screening Completed 09/01/2023 HIB Vaccines Aged Out No longer eligi ble based on patient's age to complete this topic HPV Vaccines Aged Out No longer eligi ble based on patient's age to complete this topic IPV Vaccines Aged Out No longer eligi ble based on patient's age to complete this topic Meningococcal Vaccine Aged Out No jamaal haleigh eligible based on patient's age to complete this topic Pneumococcal Vaccine: Pediatrics (0 to 5 Years) and At-Risk Patients (6 to 49) Years) Aged Out No longer eligible b ased on patient's age to complete this topic RSV under 20 months Aged Out No longe r eligible based on patient's age to complete this topic Rotavirus Vaccines Aged Out No longer eligible based on patient's age to complete this topic Procedures Procedure Name Priority Date/Time Associated Diagnosis Comments HEPATITIS A ANTIBODY, TOTAL Routine 08/09/2024 11:28 AM EST History of hepatitis C HEPATITIS B SURFACE ANTIBODY, QUALITATIVE Routine 08/09/2024 11:28 AM EST History of hepatitis C HEPATITIS B SURFACE ANTIGEN, EIA Routine 08/09/2024 11:28 AM EST History of hepatitis C HEPATITIS C VIRAL RNA, QUANTITATIVE, REAL-TIME PCR Routine 08/09/2024 11:28 AM EST History of hepatitis C PSA, TOTAL Routine 08/09/2024 11:28 AM EST Hematospermia Nocturia URINALYSIS, COMPLETE, WITH REFLEX TO CULTURE Routine 08/09/2024 11:28 AM EST Hematospermia LIPID PANEL, STANDARD Routine 08/09/2024 11:28 AM EST Hypertension, unspecified type ALBUMIN, RANDOM URINE W/CREATININE Routine 08/09/2024 11:28 AM EST Hypertension, unspecified type COMPREHENSIVE METABOLIC PANEL Routine 08/09/2024 11:28 AM EST Hypertension, unspecified type CBC WITH AUTO DIFFERENTIAL Routine 08/09/2024 11:28 AM EST Hypertension, unspecified type CHLAMYDIA/N. GONORRHOEAE RNA, TMA, UROGENITAL Routine 08/09/2024 11:28 AM EST Hematospermia ECG 12-LEAD Routine 08/08/2024 1:33 PM EST Hypertension, unspecified type from Last 3 Months Results * Urinalysis, Complete, with Reflex to Culture (08/09/2024 11:28 AM EST) Color Urine Yellow [facility] Appearance Urine Clear [facility] PH 6.5 5.0 - 9.0 [facility] Glucose Urine UA Negative Negative mg/dL [facility] Urine Blood Negative Negative [facility] Specific [place] - Urine 1.010 1.005 - 1.025 [facility] Urine Protein Negative Neg-Trace mg/dL [facility] Urine Ketones Negative Negative mg/dL [facility] Nitrite Urine Negative Negative [facility] Leukocyte Esterase Urine Negative Negative [facility] RBC Urine 0-2 0 - 2 /HPF [facility] Urine WBC 0-5 0 - 5 /HPF [facility] Urine Squamous Epithelial Cell 0-2 0 - 2 /HPF [facility] Urine Bacteria None Seen None Seen [facility] Hyaline Casts, Urine 0-2 0 - 2 /LPF [facility] Urine 08/09/2024 11:2 8 AM EST 08/09/2024 1:05 PM EST Narrative [facility] - 08/09/2024 1:22 PM EST Urine, Clean Catch us Andrei Chicas MD LAB URINE ORDERABLES Final Resul t [facility] [address] [place] [phone] * Hepatitis C Viral RNA, Quantitative, Real-Time PCR (08/09/2024 11:28 AM EST) Hepatitis C Viral Load <15 NOT DETECTED NOT DETECTED IU/mL [facility] HCV Log PCR <1.18 NOT DETECTED NOT DETECTED Log IU/mL [facility] Comment:For additional infor kelsey, please refer [email or web address].[employer]/faq/JPZ46d2(This link is being provided for informational/educational purposes only.)THIS TEST WAS PERFORMED AT:[employer] [place] [phone] HERNANDEZ MD Blood Venous blood specimen / Unknown 08/09/2024 11:28 AM EST 08/09/2024 12:57 PM EST us Andrei Chicas MD LAB BLOOD ORDERABLES Final Resul t Performing Organization Address [facility] [[email or web address]] Co de Phone Number [facility] [address] [place] [phone] * Albumin, Random Urine W/Creatinine (08/09/2024 11:28 AM EST) Pathologist [facility] [place] Creatinine, Urine 59.41 mg/dL [facility] Microalbumin Urine <5.0 mg/L [facility] Microalbum Creatinine Ratio Ur TNP <30 ug/mg cr [facility] Comment:Unable to calculate albumin/creatinine ratio due to lowmicroalbumin or creatinine result. Urine (Urine, Random) 08/09/2024 11:28 AM EST 08/09/2024 1:05 PM EST us Andrei Chicas MD LAB URINE ORDERABLES Final Resul t Performing Organization Address [facility] [[email or web address]] Co de Phone Number [facility] [address] [place] [address] [phone] * (ABNORMAL) CBC auto differential (08/09/2024 11:28 AM EST) Pathologist [facility] White Blood Count 3.4(L) 4.8 - 10.8 X10*3/uL [facility] Red Blood Count 4.68 4.60 - 5.80 X10*6/uL [facility] Hemoglobin 14.5 14.0 - 18.0 g/dl [facility] Hematocrit 42.3 42.0 - 52.0 % [facility] Mean Corpuscular Volume 90.4 80.0 - 98.0 fL [facility] Mean Corpuscular Hemoglobin 31.0 27.0 - 33.0 pg [facility] Mean Corpuscular HGB Conc 34.3 31.0 - 36.0 g/dl [facility] Red Cell Distribution Width 11.9 11.0 - 16.0 % [facility] Platelet Count 226 160 - 400 X10*3/uL [facility] Mean Platelet Volume 10.0 9.4 - 12.4 fL [facility] Neutrophils Percent Auto 65.6 45 - 73 % [facility] Imm Gran Pct Auto 0.3 0.0 - 0.4 % [facility] Lymphocytes Percent Auto 23.0 20 - 40 % [facility] Monocytes Percent Auto 9.0 2 - 11 % [facility] Eosinophils Percent Auto 1.2 0 - 4 % [facility] Basophils Percent Auto 0.9 0 - 2 % [facility] NRBC Pct Auto 0.0 0.0 - 0.2 /100WBC [facility] Neutrophils Absolute Auto 2.3 2.0 - 8.3 x10*3/uL [facility] Imm Gran Abs Auto 0.01 0.00 - 0.03 X10*3/uL [facility] Lymphocytes Absolute Auto 0.8(L) 1.2 - 4.9 X10*3/uL [facility] Monocytes Absolute Auto 0.3 0.1 - 1.2 X10*3/uL [facility] Eosinophils Absolute Auto 0.0 0.0 - 0.4 X10*3/uL [facility] Basophils Absolute Auto 0.0 0.0 - 0.2 X10*3/uL [facility] NRBC Abs Auto 0.000 0.0 - 0.012 X10*3/uL [facility] Blood Venous blood specimen / Unknown 08/09/2024 11:28 AM EST 08/09/2024 12:57 PM EST us Andrei Chicas MD LAB BLOOD ORDERABLES Final Resul t Performing Organization Address [facility] [[email or web address]] Co de Phone Number [facility] [address] [place] [address] [phone] * Hepatitis A Antibody, Total (08/09/2024 11:28 AM EST) Hepatitis A Antibody IgG REACTIVE Nonreactive [facility] Comment:The presence of IgG anti-HAV implies past HAV infection(recent or distant) or vaccination against HAV. Blood Venous blood specimen / Unknown 08/09/2024 11:28 AM EST 08/09/2024 12:57 PM EST us Andrei Chicas MD LAB BLOOD ORDERABLES Final Resul t Performing Organization Address [facility] [[email or web address]] Co de Phone Number [facility] [address] [place] [address] [phone] * Chlamydia/N. Gonorrhoeae RNA, TMA, Urogenitial (08/09/2024 11:28 AM EST) CT PCR NOT DETECTED Not Detect. [facility] Comment:A not detected test result does not exclude the possibilityof infection because test results can be affected byimproper specimen collection, concurrent antibiotic therapy,or the number of organisms in the specimen which may bebelow the sensitivity of the test. As with many diagnostictests, results from the Xpert CT/NG assay should beinterpreted in conjunction with other laboratory andclinical data available to the clinician.Xpert CT/NG performance has not been evaluated in patientsless than 14 years of age. The assay should not be used forthe evaluationof suspected sexual abuse or for other medico-legalindications. Additional testing is recommended in anycircumstance when false positive or false negative resultscould lead to adverse medical, social or psychologicalconsequences. NG PCR NOT DETECTED Not Detect. [facility] Comment:A not detected test result does not exclude the possibilityof infection because test results can be affected byimproper specimen collection, concurrent antibiotic therapy,or the number of organisms in the specimen which may bebelow the sensitivity of the test. As with many diagnostictests, results from the Xpert CT/NG assay should beinterpreted in conjunction with other laboratory andclinical data available to the clinician.Xpert CT/NG performance has not been evaluated in patientsless than 14 years of age. The assay should not be used forthe evaluationof suspected sexual abuse or for other medico-legalindications. Additional testing is recommended in anycircumstance when false positive or false negative resultscould lead to adverse medical, social or psychologicalconsequences. Urine (Urine, Random) 08/09/2024 11:28 AM EST 08/09/2024 1:05 PM EST Narrative [facility] - 08/10/2024 5:23 AM EST Urine us Andrei Chicas MD LAB MICROBIOLOGY - GENERAL ORDER YANICK Final Result Performing Organization Address City/[facility]/ZIP Co de Phone Number [facility] [address] [place] [phone] * Hepatitis B surface antigen, EIA (08/09/2024 11:28 AM EST) Pathologist [facility] Hepatitis B Surface Ag Negative Negative [facility] Blood Venous blood specimen / Unknown 08/09/2024 11:28 AM EST 08/09/2024 12:57 PM EST us Andrei Chicas MD LAB BLOOD ORDERABLES Final Resul t Performing Organization Address [facility] [[email or web address]] Co de Phone Number [facility] [address] [place] [address] [phone] * Hepatitis B Surface Antibody, Qualitative (08/09/2024 11:28 AM EST) ~Hepatitis B Surface Antibody NONREACTIVE Nonreactive [facility] Comment:Nonreactive: < 8.00 mIU/mL Blood Venous blood specimen / Unknown 08/09/2024 11:28 AM EST 08/09/2024 12:57 PM EST us Andrei Chicas MD LAB BLOOD ORDERABLES Final Resul t Performing Organization Address [facility] de Phone Number [facility] [address] [place] [address] [phone] * PSA,Total (08/09/2024 11:28 AM EST) Prostate Specific Antigen 0.93 <0.05 - 4.0 ng/mL [facility] Comment:PSA methodology: Joan Peter i ChemiluminescentMicroparticle Immunoassay (CMIA) Blood Venous blood specimen / Unknown 08/09/2024 11:28 AM EST 08/09/2024 12:57 PM EST us Andrei Chicas MD LAB BLOOD ORDERABLES Final Resul t Performing Organization Address [facility] de Phone Number [facility] [address] [place] [address] [phone] * Lipid Panel, Standard (08/09/2024 11:28 AM EST) Triglycerides 42 <150 mg/dL [facility] Comment:Desirable Triglyceri de: less than 150 mg/dLBorderline High Triglyceride 150-199 mg/dLHigh Triglyceride: 200-499 mg/dLVery High Triglyceride: greater than or equal to 5OO mg/dL Cholesterol 131 <200 mg/dL [facility] Comment:Desirable Cholestero l: less than 200 mg/dLBorderline High Cholesterol: 200-239 mg/dLHigh Cholesterol: greater than 239 mg/dL LDL Cholesterol Calculated 73 <100 mg/dL [facility] Comment:Desirable LDL: less than 100 mg/dLNear Optimal/Above Optimal LDL: 110- 129 mg/dLBorderline High LDL: 130-159 mg/dLHigh LDL: 160-189 mg/dLVery High LDL: greater than or equal to 190 mg/dL HDL Cholesterol 50 >40 mg/dL [facility] Comment:Desirable HDL: great er than 40 mg/dL Note: This HDL assay may give artificially low results in patients with liver disease. Blood Venous blood specimen / Unknown 08/09/2024 11:28 AM EST 08/09/2024 1:46 PM EST us Andrei Name LAB BLOOD ORDERABLES Final Resul t [facility] [address], [place] [phone] * (ABNORMAL) Comprehensive Metabolic Panel (08/09/2024 11:28 AM EST) Sodium 141 135 - 145 mmol/L [facility] Potassium 4.0 3.3 - 5.1 mmol/L [facility] Chloride 109(H) 96 - 108 mmol/L [facility] Carbon Dioxide 26 22 - 29 mmol/L [facility] Anion Gap 10(L) 12 - 20 [facility] Urea Nitrogen (BUN) 11 9 - 16 mg/dL [facility] Creatinine, Serum 0.70 0.5 - 1.4 mg/dL [facility] Estimated Glomerular Filt Rate >60 [facility] Comment:Chronic Kidney Disea se: Estimated GFR < 60 mL/min/1.41i0Bkyplu Kidney Disease: Estimated GFR < 15 mL/min/1.73m2 Glucose 102 60 - 115 mg/dL [facility] Calcium 8.7 8.4 - 10.2 mg/dL [facility] Bilirubin, Total 0.9 0.0 - 1.0 mg/dL [facility] Aspartate Amino Transferase 60(H) 5 - 37 U/L [facility] Alanine Aminotransferase 39 0 - 40 U/L [facility] Total Protein 6.9 6.5 - 8.0 g/dL [facility] Albumin Level 4.3 3.5 - 5.0 g/dL [facility] Alkaline Phosphatase 73 39 - 117 U/L [facility] Blood Venous blood specimen / Unknown 08/09/2024 11:28 AM EST 08/09/2024 1:46 PM EST us Andrei Chicas MD LAB BLOOD ORDERABLES Final Resul t [facility] [address] [place] [phone] * ECG 12 lead (08/08/2024 1:33 PM EST) Narrative Name, MD Andrei - 08/08/2024 1:33 PM EST Normal sinus rhythm. ??Heart rate of 67. ??No ST segment elevation or depression. us Andrei Chicas MD ECG ORDERABLES Final Result from Last [address] [place] [address] [place] [address] [employer] Care Teams Crap Game Box Person Relationship Specialty Start Date End Date Name, MD Andrei [address] [place] [phone] PCP - General Internal Medicine 08/08/24
--- OUTSIDE RECORDS SUMMARY | 2024-10-30 16:14 | XMS_ITS | Encounter Summary ---
Author Organization [facility] Address [address] [place] [address] Care Team Providers Care Tire And Lube Technician Name Role Phone Camila Pillai Primary Care Provider [phone] Encounter Details Date Type Department Care Team (Late st Contact Info) Description 08/31/2023 / TELEPHONE [facility] [address] [place] [phone] Adrien Roberson [address] [place] [address] Social History Tobacco Use Types Packs/Day Years [...] documented as of this encounter Care Teams Tire And Lube Technician Relationship Specialty Start Date End Date Camila Pillai PA [address] [place] [address] PCP - General Primary Care 09/06/23 documented as of this encounter
--- OUTSIDE RECORDS SUMMARY | 2024-10-30 16:14 | XMS_ITS | Encounter Summary ---
Author Organization [employer] Address [address] [place] [address] [address] [place] [address] Care Team Providers Care Mold Worker Name Role Phone Name, Anrdei PAULINO Primary Care Provider [phone] Reason for Visit * Reason Onset Date Comments Appointment Request 07/24/2024 Encounter Details Date Type Department Care Team ([facility] st Contact Info) Description 07/24/2024 Telephone [facility] [address] [place], [place] [phone] Elan De La Paz MD [address], [place] [phone] Appointment Request Social History Tobacco Use Types Packs/Day Years Used Date Smoking Tobacco: Never Assessed Sex and Gender Information Value Date Recorded Sex Assigned at Male 09/29/2023 4:55 PM EDT Legal Sex Male 3:50 PM EDT Gender Identity Male 09/29/2023 4:55 PM EDT Sexual Orientation Straight 08/08/2024 12 :28 PM EST documented as of this encounter Miscellaneous Notes * Telephone Encounter - Moi Greene - 07/24/2024 10:03 AM EST TC from caller requesting NEW PATIENT visit . Medical Conditions: High Blood Insurance name : [employer] Location : [place] Demographic information updated documented in this encounter Plan of Treatment Not on file documented as of this encounter Visit Diagnoses Not on filedocumented in this encounter Care Teams Mold Worker Relationship Specialty Start Date End Date Name, MD Andrei [address], [place] [phone] PCP - General Internal Medicine 08/08/24 documented as of this encounter
--- OUTSIDE RECORDS SUMMARY | 2024-10-30 16:14 | XMS_ITS | Clinical Summary ---
Author Organization [facility] Address [address] [place] [address] Care Team Providers Care Manager Distribution Name Role Phone Camila Pillai Primary Care Provider [phone] Source Comments PLEASE NOTE, if this patient [...] for anxiety or sleep 90 Tablet 3 08/25/2023 Active guanFACINE (TENEX) 1 mg tablet TAKE 2 TABLETS BY MOUTH EVERY DAY AT BEDTIME 09/27/2023 Active QUEtiapine (SEROQUEL) 25 mg tablet TAKE 1 TO 2 TABLETS BY MOUTH EVERY NIGHT AT BEDTIME NEEDED 08/18/2024 Active amLODIPine (NORVASC) 5 mg tabletIndication s:Hypertension, unspecified type Take 1 Tablet by mouth once daily 90 Tablet 3 09/05/2024 Active lisinopriL 40 mg tabletIndication s:Hypertension, unspecified type Take 1 Tablet by mouth once daily 90 Tablet 3 09/05/2024 Active cloNIDine (CATAPRES) 0.1 mg tabletIndication s:Opioid use disorder, moderate, in sustained remission, on maintenance therapy ([facility]) Take 1 Tablet by mouth 2 (two) times daily 28 Tablet 09/05/2024 Active atenoloL (TENORMIN) 25 mg tabletIndication s:Hypertension, unspecified type Take 1 Tablet by mouth once daily 90 Tablet 3 09/05/2024 Active buprenorphine-na loxone (SUBOXONE FILM) 8-2 mg SL filmIndications: Opioid use disorder Place 1 Strip under the tongue 2 (two) times daily 14 Each 09/05/2024 Active Active Problems Problem Noted Date Diagnosed Date Attention deficit hyperactiv ity disorder (ADHD), predominantly inattentive type 10/05/2023 Opioid use disorder 09/01/2023 Anxiety 09/01/2023 Hypertension 09/01/2023 Neck pain, chronic 09/01/2023 Encounters Date Type Department Care Team Description 09/05/2024 2:20 PM EST Office Visit [address] [address] Dao Scott FNP-C Hypertensive urgency (Primary Dx); Hypertension, unspecified type; Opioid use disorder, moderate, in sustained remission, on maintenance therapy (HCC-CMS); Uncomplicated opioid dependence (HCC-CMS); Opioid use disorder 09/03/2024 / TELEPHONE [address] [address] Daphne Menendez MA Anxiety (Primary Dx); Opioid use disorder, moderate, in sustained remission, on maintenance therapy (HCC-CMS); Attention deficit hyperactivity disorder (ADHD), predominantly inattentive type; Opioid use disorder; Uncomplicated opioid dependence (HCC-CMS) from Last 3 Months Social History Tobacco [...] Sign Reading Time Taken Comments Blood Pressure 183/106 09/05/2024 2:58 PM EST Pulse 60 09/05/2024 2:08 PM EST Temperature 37 ??C (98.6 ??F) 09/05/2024 2:08 PM EST Respiratory Rate 16 09/05/2024 2:08 PM EST Oxygen Saturation 99% 09/12/2024 3:22 PM EST Inhaled Oxygen Concentration - - Weight 77.1 kg (170 lb) 09/05/2024 2:08 PM EST Height - - Body Mass Index - - Plan of Treatment Health Maintenance Due Date Last Done Comments Anxiety Screening 1976 Dental Prophy 1976 Tobacco Screening 1976 Imm-DTaP/Tdap/Td (1 - Tdap) 1995 Imm-Hepatitis B (1 of 3 - 19 + 3-dose series) 1995 CT Colonography 2021 Colonoscopy 2021 Colorectal Cancer Screening 2021 FIT/gFOBT 2021 Fecal DNA 2021 Flexible Sigmoidoscopy 2021 [id number]-23 () 03/11/2024 Imm-Influenza (#1) 2024 Dental BW 08/06/2024 08/04/2023 Dental Examination 08/06/2024 08/04/2023 Dental Perio Charting 08/06/2024 08/04/2023 Depression Monitoring 12/02/2024 09/04/2024 , 09/29/2023, 08/25/2023 Diabetes Screening 08/09/2025 08/09/2024, 09/01/2023 Lipid Screening 08/09/2025 08/09/2024, 09/01/2023 Dental FMX/Pano 08/06/2028 08/04/2023 HIV Screening Completed 09/01/2023 Hepatitis C Screening Completed 09/01/2023, 024 Alcohol and Drug Screen Completed 09/04/19, 09/29/2023, 09/29/2023 Procedures Procedure Name Priority Date/Time Associated Diagnosis Comments DRUG MONITORING TEMPLATE Routine 09/05/2024 2:50 PM EST DRUG MONITORING TEMPLATE Routine 09/05/2024 2:50 PM EST DRUG MONITORING, PANEL 8 WITH CONFIRMATION, URINE Routine 09/05/2024 2:50 PM EST Uncomplicated opioid dependence ([facility]) DRUG MONITORING, FENTANYL, WITH CONFIRMATION, URINE Routine 09/05/2024 2:50 PM EST Uncomplicated opioid dependence ([facility]) DRUG MONITORING, BARBITURATES, WITH CONFIRMATION, URINE Routine 09/05/2024 2:50 PM EST Uncomplicated opioid dependence ([facility]) HIV 1/2 AG & AB W/RFLX (4TH [...] Recently Relevant to Health Maintenance Results * (ABNORMAL) DRUG MONITORING, PANEL 8 WITH CONFIRMATION, URINE (09/05/2024 2:50 PM EST) AMPHETAMINES NEGATIVE <500 [employer] [facility] BENZODIAZEPINES NEGATIVE <100 [employer] [facility] BUPRENORPHINE POSITIVE(A) <5 QUES [employer] [facility] MEDMATCH BUPRENORPHINE PENDING [facility] BUPRENORPHINE 23(H) <2 ng/mL [employer] [facility] MEDMATCH BUPRENORPHINE PENDING [facility] NORBUPRENORPHINE 33(H) <2 ng/mL QUE [employer] [facility] MEDMATCH NORBUPRENORPHINE PENDING [facility] NALOXONE 20(H) <2 ng/mL [facility] medMATCH Naloxone PENDING QU EST [employer] [facility] Buprenorphine Comments See Note [facility] Comment:See Buprenorphine No archie, LDT Notes COCAINE METABOLITE NEGATIVE <150 Q [facility] 6 ACETYLMORPHINE NEGATIVE <10 QUE [employer] [facility] MARIJUANA METABOLITE NEGATIVE <20 [facility] MDMA NEGATIVE <500 [facility] OPIATES NEGATIVE <100 [facility] OXYCODONE NEGATIVE <100 [facility] CREATININE 53.4 > or = 20.0 mg/dL [facility] PH 6.7 4.5 - 9.0 [facility] OXIDANT NEGATIVE <200 [facility] ALCOHOL METABOLITES NEGATIVE <500 [facility] Urine Urine specimen / Unknown 09/05/2024 2:50 PM EST 09/06/2024 4:18 AM EST [employer] LAB - NO BLOOD DRAW Edite d Result - Final Performing Organization Address City/[facility]/ZIP Co de Phone Number [facility] [address] [address], [employer] [address] [address] * DRUG MONITORING, FENTANYL, WITH CONFIRMATION, URINE (09/05/2024 2:50 PM EST) Fentanyl NEGATIVE <0.5 [employer] [facility] Urine Urine specimen / Unknown 09/05/2024 2:50 PM EST 09/06/2024 4:18 AM EST [employer] PACKING LINE WORKER-C LAB - NO BLOOD DRAW Final Result Performing Organization Address [facility] Co de Phone Number [facility] [address] [address], [employer] [address] [address] * DRUG MONITORING, BARBITURATES, WITH CONFIRMATION, URINE (09/05/2024 2:50 PM EST) BARBITURATES NEGATIVE <300 [facility] [employer] [facility] Urine Urine specimen / Unknown 09/05/2024 2:50 PM EST 09/06/2024 4:18 AM EST Dao Scott PACKING LINE WORKER-C LAB - NO BLOOD DRAW Final Result Performing Organization Address City/[facility]/ZIP Co de Phone Number [facility] [address] [address], [facility] [address] [address] * HIV 1/2 AG & AB W/RFLX (4TH GEN) (09/01/2023 1:15 PM EST) [facility] HIV AG/AB, 4TH GEN NON-REAC TIVE NON-REAC TIVE [facility] Comment: HIV-1 antigen and HIV-1/HIV-2 antibodies were [...] ?? For additional information please refer to http://education.ANDalyze/faq/ORY611 (This link is being provided for informational/ educational purposes only.) The performance of this assay has not been clinically validated in patients less than 2 years old. Blood Blood / Unknown 09/01/2023 1 :15 PM EST 09/01/2023 1:17 PM EST Narrative [facility] - 09/03/2023 2:33 PM EST FASTING:NO Francisco Javier GARAY-C LAB - BLOOD DRAW Final Result Performing Organization Address City/[facility]/ZIP Co de Phone Number [facility] [address] [address], [facility] [address] [address] * (ABNORMAL) ACUTE HEPATITIS PANEL W/RFLX (09/01/2023 1:15 PM EST) HEPATITIS B SURFACE ANTIGEN NON-REACT LISSA NON-REACT LISSA [facility] COMMENT [facility] HEPATITIS A IGM ANTIBODY NON-REACT LISSA NON-REACT LISSA [facility] HEPATITIS B CORE IGM ANTIBODY NON-REACT LISSA NON-REACT LISSA [facility] COMMENT [facility] HEPATITIS C ANTIBODY REACTIVE( A) NON-REACT LISSA [facility] Comment: Based on this result, the sample will be tested for HCV RNA by a Nucleic Acid Amplification Test (NAAT) to determine if the patient has a current active infection. COMMENT [facility] Blood Blood / Unknown 09/01/2023 1 :15 PM EST 09/01/2023 1:17 PM EST Narrative [facility] - 09/03/2023 2:33 PM EST FASTING:NO For additional information, please refer to http://Network Game Interaction.ANDalyze/faq/ZWU451 (This link is being provided for informational/ educational purposes only.) For additional information, please refer to http://Network Game Interaction.ANDalyze/faq/VPM222 (This link is being provided for informational/ educational purposes only.) For additional information, please refer to http://Omni-ID/faq/AMI497 (This link is being provided for informational/ educational purposes only.) Result [facility] Francisco Javier Vivar PA-C LAB - BLOOD DRAW Final Result [facility] [address] [address], [facility] [address] [address] * (ABNORMAL) LIPID PANEL (09/01/2023 1:15 PM EST) Pathologist [facility] CHOLESTEROL, TOTAL 147 <200 mg/dL [facility] HDL CHOLESTEROL 32(L) > OR = 40 mg/dL [facility] TRIGLYCERIDES 62 <150 mg/dL [facility] LDL-CHOLESTEROL 101(H) 99 mg/dL (calc) [email or web address] Comment: Reference range: <100 Desirable range <100 mg/dL for primary prevention; ?? <70 mg/dL for patients with CHD or diabetic patients with > or = 2 CHD risk factors. LDL-C is now calculated using the Kait calculation, which is a validated novel method providing better accuracy than the Friedewald equation in the estimation of LDL-C. Petar GUZMAN et al. JYOTI. 2013;310(19): 3556-1485 (http://education.Sxmobi Science and Technology/faq/FQG303) CHOL/HDLC RATIO 4.6 <5.0 (calc) [email or web address] NON-HDL CHOLESTEROL 115 <130 mg/dL (calc) [email or web address] Comment: For patients with diabetes plus 1 major ASCVD risk factor, treating to a non-HDL-C goal of <100 mg/dL (LDL-C of <70 mg/dL) is considered a therapeutic option. Blood Blood / Unknown 09/01/2023 1 :15 PM EST 09/01/2023 1:17 PM EST Narrative [facility] - 09/03/2023 2:33 PM EST FASTING:NO us Francisco Javier Vivar PA-C LAB - BLOOD DRAW Final Result [facility] [address] [place] [phone], [email or web address] [address] [place] [phone] * (ABNORMAL) COMPREHENSIVE METABOLIC PANEL (09/01/2023 1:15 PM EST) GLUCOSE 145(H) 65 - 139 mg/dL [email or web address] Comment: ?Non-fasting reference interval UREA NITROGEN (BUN) 16 7 - 25 mg/dL [email or web address] CREATININE (blood) 0.85 0.60 - 1.29 mg/dL [email or web address] EGFR 108 > OR = 60 mL/min/1. 73m2 [email or web address] BUN/CREATININE RATIO SEE NOTE: [email or web address] Comment: ?? Not Reported: BUN and Creatinine are within ?? reference range. ? SODIUM 136 135 - 146 mmol/L [email or web address] POTASSIUM 4.1 3.5 - 5.3 mmol/L [facility] CHLORIDE 101 98 - 110 mmol/L [facility] CARBON DIOXIDE 24 20 - 32 mmol/L [facility] CALCIUM 9.0 8.6 - 10.3 mg/dL [facility] PROTEIN, TOTAL 6.6 6.1 - 8.1 g/dL [facility] ALBUMIN 4.2 3.6 - 5.1 g/dL [facility] GLOBULIN 2.4 1.9 - 3.7 g/dL (calc) [facility] ALBUMIN/GLOBULI N RATIO 1.8 1.0 - 2.5 (calc) [facility] BILIRUBIN, TOTAL 0.6 0.2 - 1.2 mg/dL [facility] ALKALINE PHOSPHATASE 70 36 - 130 U/L [facility] AST 131(H) 10 - 40 U/L [facility] ALT 103(H) 9 - 46 U/L [facility] Blood Blood / Unknown 09/01/2023 1 :15 PM EST 09/01/2023 1:17 PM EST Narrative [facility] - 09/03/2023 2:33 PM EST FASTING:NO us Francisco Javier Vivar PA-C LAB - BLOOD DRAW Edited Resul t - Final [facility] [address] [address], [facility] [address] [place] [address] from Last 3 Months or Most Recently Relevant to Health Maintenance [place] [address] [facility] Care Teams Manager Distribution Relationship Specialty Start Date End Date Camila Pillai PA [address] [place] [id number] PCP - General Primary Care 09/06/23
--- OUTSIDE RECORDS SUMMARY | 2024-10-30 16:14 | XMS_ITS | Encounter Summary ---
Author Organization [facility] [employer] Address [address] [place] [address] 7 [place] [address] Care Team Providers Care Machine Shop Apprentice Name Role Phone Name, Andrei PAULINO Primary Care Provider [phone] Reason for Visit * Reason Comments Hypertension Encounter Details Date Type Department Care Team ([facility] st Contact Info) Description 10/30/2024 1:00 PM EDT Office Visit [facility] [address] [place], [place] [phone] Name, MD Andrei [address] [place], [place] [phone] Hypertension, unspecified type (Primary Dx); Opioid use disorder; Routine screening for STI (sexually transmitted infection); Erectile dysfunction, unspecified erectile dysfunction type Social History Tobacco Use Types Packs/Day Years [...] with others, in a hotel, in a mcc, living outside on the street, on a [...] PM EST documented as of this encounter Last Filed Vital Signs Vital Sign Reading [...] Mass Index 24.28 10/30/2024 1:12 PM EDT documented in this encounter Progress Notes * Andrei Chicas MD - 10/30/2024 1:00 PM EDT Subjective Patient ID: Jem Patel is a 49 y.o. male who presents for Hypertension. Patient comes for a follow-up visit. Since the last time I saw him he relapsed using heroin. He wasincarcerated for about a month, he was started on Suboxone, and new blood pressure medications. Thepatient Suboxone clinic is located in [place]. He is tolerating his current blood pressure medication without any difficulties. He tells me his blood pressure at home is usually slightly above 140/90. He tells me he uses medication regularly. He restarted vaping nicotine. He has requested that I recheck his STI testing. The patient denies IVDA. The patient tells me he snorted heroin. I suggested hepatitis B vaccination today since he is not immune but he would like to wait. The patient is back on lisinopril. He told me that in the past he was taken off lisinopril because of hyperkalemia. Review of Systems Constitutional: Negative for chills, fatigue and fever. HENT: Negative for sore throat. Respiratory: Negative for cough, chest tightness and shortness of breath. Cardiovascular: Negative for chest pain, palpitations and leg swelling. Gastrointestinal: Negative for abdominal pain and blood in stool. Visit Vitals BP (!) 145/89 Pulse 64 Temp 98.7 ??F (37.1 ??C) (Temporal) Resp 21 Ht 5' 9 (1.753 m) Wt 164 lb 6.4 oz (74.6 kg) SpO2 99% BMI 24.28 kg/m?? Smoking Status Never BSA 1.91 m?? Objective Physical Exam Constitutional: Appearance: Normal appearance. Cardiovascular: Rate and Rhythm: Normal rate and regular rhythm. Heart sounds: No murmur heard. Pulmonary: Effort: Pulmonary effort is normal. No respiratory distress. Breath sounds: No wheezing, rhonchi or rales. Abdominal: Palpations: Abdomen is soft. Tenderness: There is no abdominal tenderness. Musculoskeletal: Right lower leg: No edema. Left lower leg: No edema. Neurological: Mental Status: He is alert. Assessment/Plan Diagnoses and all orders for this visit: Hypertension, unspecified type Comments: Continue current meds, check BP at home, call if BP is persistently above 140/90. Check blood work listed below. He refused referral to CD for now Orders: - Basic Metabolic Panel; Future Opioid use disorder Comments: Patient is encouraged to continue follow-up with his behavioral health providers. Patient is getting Suboxone through [facility] Routine screening for STI (sexually transmitted infection) Comments: I will check blood work listed below. Orders: - HIV-1/2 Antigen and Antibodies, Fourth Generation, with Reflexes; Future - Hepatitis C Viral RNA, Quantitative, Real-Time PCR; Future - Hepatitis B surface antigen, EIA; Future - RPR (Monitor) with Reflex to Titer; Future - Chlamydia/N. Gonorrhoeae RNA, TMA, Urogenitial Erectile dysfunction, unspecified erectile dysfunction type Comments: Patient complains of ED since he restarted Suboxone. He was prescribed Cialis today. He is recommended to stay monogamous and use condoms. Other orders - tadalafil (Cialis) 20 MG tablet; Take 1 tablet (20 mg) by mouth if needed each day for erectile dysfunction. documented in this encounter Plan of Treatment Scheduled Orders Name Type Priority Associated Diagnoses Orde r Schedule Basic Metabolic Panel Lab Routine Hypertension, unspecified type Expected: 10/30/2024 (Approximate), Expires: 10/30/2025 HIV-1/2 Antigen and Antibodies, Fourth Generation, with Reflexes Lab Routine Routine screening for STI (sexually transmitted infection) Expected: 10/30/2024 (Approximate), Expires: 10/30/2025 Hepatitis C Viral RNA, Quantitative, Real-Time PCR Lab Routine Routine screening for STI (sexually transmitted infection) Expected: 10/30/2024 (Approximate), Expires: 10/30/2025 Hepatitis B surface antigen, EIA Lab Routine Routine screening for STI (sexually transmitted infection) Expected: 10/30/2024 (Approximate), Expires: 10/30/2025 RPR (Monitor) with Reflex to??Titer Lab Routine Routine screening for STI (sexually transmitted infection) Expected: 10/30/2024, Expires: 10/30/2025 Chlamydia/N. Gonorrhoeae RNA, TMA, Urogenitial Microbiology Routine Routine screening for STI (sexually transmitted infection) Ordered: 10/30/2024 documented as of this encounter Visit Diagnoses Diagnosis Hypertension, unspecified type- Primary Opioid use disorder Routine screening for STI (sexually transmitted infection) Screening examination for venereal disease Erectile dysfunction, unspecified erectile dysfunction type documented in this encounter Additional Health Concerns Assessment Noted Time PHQ-9 Depression Total Score: 5 08/08/19 25 1:16 PM EST documented as of this encounter Care Teams Machine Shop Apprentice Relationship Specialty Start Date End Date NameAndrei MD [address] [place] [address] PCP - General Internal Medicine 08/08/24 documented as of this encounter
--- OUTSIDE RECORDS SUMMARY | 2024-10-30 16:14 | XMS_ITS | Encounter Summary ---
Author Organization [facility] Address [address] [place] [address] 7 [place] [address] Care Team Providers Care Drywall Hanger Name Role Phone Name, Andrei PAULINO Primary Care Provider [phone] Encounter Details Date Type Department Care Team (Latest Contact Info) Description 10/30/2024 Travel Social History Tobacco Use Types Packs/Day Years Used Date Smoking Tobacco: Never Smokeless Tobacco: Current Alcohol Use Standard Drinks/Week Comments Never 0 [...] with others, in a hotel, in a fci, living outside on the street, on a [...] documented as of this encounter Care Teams Drywall Hanger Relationship Specialty Start Date End Date Name, MD Andrei [address] [place] [address] PCP - General Internal Medicine 08/08/24 documented as of this encounter
[2024-10-30 16:23] LABS: Eosinophils Absolute Auto 0.1 X10*3/uL (0.0-0.4); Eosinophils Percent Auto 2.5 % (0-4); Hematocrit 37.9 % (42.0-52.0); Hemoglobin 13.2 g/dl (14.0-18.0); Lymphocytes Absolute Auto 0.9 X10*3/uL (1.2-4.9); Lymphocytes Percent Auto 23.2 % (20-40); Mean Corpuscular HGB Conc 34.8 g/dl (31.0-36.0); Mean Corpuscular Hemoglobin 30.9 pg (27.0-33.0); Mean Corpuscular Volume 88.8 fL (80.0-98.0); Mean Platelet Volume 9.8 fL (9.4-12.4); Monocytes Absolute Auto 0.3 X10*3/uL (0.1-1.2); Monocytes Percent Auto 6.8 % (2-11); Neutrophils Absolute Auto 2.6 x10*3/uL (2.0-8.3); Neutrophils Percent Auto 66.5 % (45-73); Platelet Count 253 X10*3/uL (160-400); Red Blood Count 4.27 X10*6/uL (4.60-5.80); Red Cell Distribution Width 12.4 % (11.0-16.0)
[2024-10-30 16:35] LABS: Anion Gap 9 (12-20); Blood Urea Nitrogen 16 mg/dL (9-16); Calcium 9.3 mg/dL (8.4-10.2); Carbon Dioxide 29 mmol/L (22-29); Chloride 105 mmol/L (96-108); Estimated Glomerular Filt Rate > 60; Glucose Random 99 mg/dL (60-115); Potassium 4.2 mmol/L (3.3-5.1); Sodium 139 mmol/L (135-145)
[2024-10-31 08:50] LABS: HBsAGNum1 0.31 S/CO (0.00-0.99); HIV AB/AG Nonreactive (Nonreactive); HIV Num 1 0.08 S/CO (0.00-0.99); Hepatitis B Surface Antigen Negative (Negative)
[2024-10-31 10:35] LABS: CT PCR NOT DETECTED (Not Detect.); NG PCR NOT DETECTED (Not Detect.)
[2024-11-01 20:32] LABS: HCV Log PCR <1.18 NOT DETECTED Log IU/mL (NOT DETECTED); HepC Viral Load <15 NOT DETECTED IU/mL (NOT DETECTED)
[2024-11-02 11:33] LABS: RPR Rapid Plasma Reagin NON-REACTIVE (NON-REACTIVE)
== END 2024-10-30 13:41 | disposition home or self-care (01) ==
LOC: HO.HHCL 13:40
PROVIDERS: Visit Provider Internal Medicine Geriatric Medicine
DX: I10 Essential (primary) hypertension (principal); D72.819 Decreased white blood cell count, unspecified
CPT/HCPCS: 80048; 85025; 86592; 87340; 87389; 87491; 87522; 87591